=== PATIENT | female | born 1990 | race Caucasian/White ===

== ENCOUNTER 2021-05-28 14:20 | Inpatient (IN) ==
[2021-05-28] MEDS ORDERED: SODIUM CHLORIDE 0.9% 1000ML 1,000 ML IV ONE (16:33)
[2021-05-28] MEDS ORDERED: KETOROLAC TROMETHAMINE 15 MG/ML VIAL IV STA (16:33)
[2021-05-28] MEDS ORDERED: ONDANSETRON INJ 2 MG/ML 2 ML VIAL IV STA (16:33)
[2021-05-28] MEDS ORDERED: HYDROmorphone INJ 0.5 MG/0.5 ML SYR IV PRN (16:33)
[2021-05-28] MEDS ORDERED: ACETAMINOPHEN 1000 MG/100 ML IV IV STA (16:37)
--- NOTE | 2021-05-28 16:47 | Emergency Department Note ---
Impression & Plan Acute right flank pain, Pleuritic chest pain, Pulmonary emboli, COVID-19 ED Provider Note Nursing withNAME: OTIS WIN AGE: 30 SEX: F : 1990 ARRIVES VIA: Walk-In INFORMANT: [Patient] ED PROVIDER(S): [Kash Lay MD] CHIEF COMPLAINT: Flank pain HISTORY OF PRESENT ILLNESS: The patient is a 30-year-old female presents to the ER with right flank and righ t chest pain. She felt okay yesterday and this all seemed to start this morning. The pain is a 7 on a scale 1-10. The pain is worse with a deep breath, with coughing or lying flat. The pain is constant. The pain does not radiate. There is no anterior abdominal pain. She does feel somewhat short of breath with exertion but, this is not unusual as she was diagnosed with Covid just under 2 weeks ago. The patient does not have any fever. There has been no nausea or vomiting, no diarrhea. Her urine was a funny color today but it did not burn to urinate. She has no history of kidney stones or of a kidney infection. REVIEW OF SYSTEMS: See HPI for pertinent positives and negatives. A total of ten systems were reviewed and were otherwise negative. PMHx/PSHx: See Below SOCIAL HISTORY: See Below. PHYSICAL EXAM: GENERAL: Patient is in moderate distress from pain. HEENT: No acute trauma, normocephalic atraumatic, mucous membranes moist, no nasal congestion, no scleral icterus. NECK: No stridor, no adenopathy, no meningismus, trachea is midline. LUNGS: Clear to auscultation bilaterally, no wheeze, no rhonchi, breath sounds equal. Increased respiratory rate. HEART: Without murmurs gallops or rubs, regular rate and rhythm. ABDOMEN: Soft, nontender, bowel sounds positive, no hernias, no peritonitis. EXTREMITIES: No cyanosis or edema, full range of motion of all the joints without pain or difficulty, no signs for acute trauma. NEUROLOGIC: Oriented x 3, no acute motor or sensory deficits, no focal weakness. SKIN: No rash, no jaundice, no diaphoresis. Back: Tender just to touch the skin of the right flank. Tender to percuss the right flank as well. No rash. DIFFERENTIAL DIAGNOSIS: Pyelonephritis, infection, diverticulitis, UTI, obstruction, mesenteric ischemia, aortic pathology, inflammatory bowel disease, renal colic, PUD, pancreatitis, biliary pathology, hernia, volvulus, constipation, PE, pneumonia, as well as other pathologies. EMERGENCY DEPARTMENT COURSE/PROCEDURES: ECG: Indication was chest pain. The ECG shows what appears to be a sinus bradycardia versus an ectopic atrial rhythm. The rate is 57. There is no ST elevation. There is some nonspecific ST change and some baseline artifact. No PVCs. The QTc is 449. Compared to an ECG from 22 May 2021, the nonspecific changes are much more pronounced. Continuous Cardiac Monitoring: An order was placed for continuous cardiac monitoring. The monitor shows a rate of 58 with sinus bradycardia. Critical Care Note: I have personally spent 61 minutes of critical care time in the direct management of this patient. This includes bedside care, interpretation of diagnostic studies, and testing, discussion with consultants, patient, and family members, and other required patient management activities. This 61 minutes is in excess of all separately billable procedures. MEDICAL DECISION MAKING: There is no leukocytosis or concerning anemia. There is a normal platelet count. No coagulopathy. Potassium was somewhat low at 3, no kidney failure. Lactic acid level was not elevated making sepsis less likely. No worrisome liver enzyme elevation. No evidence for pancreatitis. testing was negative. Covid testing was positive. Chest film showed patchy infiltrates consistent with a viral pneumonia. Chest CT showed the viral pneumonia plus pulmonary emboli. Abdominal and pelvis CT did not show any acute surgical pathology. No bowel obstruction. No hydronephrosis. The patient presents with right flank discomfort. The pain was worsened with deep breathing. She recently tested Covid positive. The patient received IV saline for hydration, she was given 1 L. She was given IV potassium and oral potassium. She received IV Zofran, IV Toradol, IV Dilaudid. She received IV Tylenol. The patient's pain is from her pneumonia and pulmonary emboli. Given her Covid findings, given her pneumonia and now the PEs, I do think hospitalization is warranted. She requires anticoagulation. I spoke to the patient and to case management. The on-call hospitalist has been consulted. Past Med/Surg History Medical History Anxiety Chronic low back pain PT FOR Globus sensation THROAT, UPCOMING PROCEDURE PLANNED TO DETERMINE CAUSE - NOT ABLE TO BE DONE AT PRESENT TIME D/T RESTRICTIONS OF PROCEDURES D/T COVID Hiatal hernia MILD History of anesthesia reaction COME OUT SLOWLY History of infection REISTANT UTI & RESISTANT YEAST INFECTIONS SUMMER 2019 - [place] ABX FOR - N/V , 30 POUND WEIGHT LOSS , GLOBUS SENSATION IN THROAT INFECTIONS BOTH HAVE CLEARED - F/U FOR GLOBUS SENSATION IN THROAT REMAINS IN PROGRESS Hypotension CHRONIC LOW BP - 110/80 SOMETIMES LOWER PER PT Nasal congestion MILD, PT REPORTS D/T WINTER ALLERGIES Obesity TMJ (temporomandibular joint disorder) NO HX LOCKING - POPPING Surgical History History of colonoscopy AND ENDOSCOPY History of surgery STEROID INJECTIONS PUT UNDER FOR AND RADIOFREQUENCY PROCEDURE LUMBAR 2011 MOST RECENT INJECTION: 2009 [place] teeth removed X3 Family History Other Family history of diabetes mellitus in father Social History Smoking Status: Never smoker Hx Alcohol Use: Yes Alcohol type: wine Preferred Language: Ukrainian Communication Ability: Effective Fashion Editor Required: No Beliefs That Will Affect Care: None Current Living Situation: Parent and Family Current Living Situation Comment: SON, PARENTS AND DAD'S MOTHER Feels Safe at Home: Yes Assistive Devices: Contacts Allergies Allergies Allergy/AdvReac Type Severity Reaction Status Date / Time morphine AdvReac Unknown headache,nausea,burning Verified 05/28/21 18:06 at IV site Sulfa (Sulfonamide AdvReac Unknown NOT Verified 05/28/21 18:06 Antibiotics) EFFECTIVE FOR PINK EYE Home Meds Home Medications Medication Instructions Recorded Confirmed fluoxetine 10 mg tablet 10 mg PO QAM 12/26/20 05/28/21 omeprazole 20 mg tablet,delayed 20 mg PO QAM 12/26/20 05/28/21 release albuterol sulfate 90 mcg/actuation 2 puff INHALATION Q4 PRN 05/22/21 05/28/21 aerosol inhaler ascorbic acid (vitamin C) 500 mg 500 mg PO QAM 05/28/21 05/28/21 tablet (Vitamin C) zinc 50 mg tablet 50 mg PO QAM 05/28/21 05/28/21 Previous Rx's Medication Instructions Recorded ondansetron 4 mg disintegrating 4 mg PO Q8H PRN #30 tab 05/22/21 tablet Results & Data (ED) Vital Signs Vital Signs - 24 hr 05/28/21 14:24 05/28/21 17:42 05/28/21 19:00 Temperature 36.8 C Temperature Source Temporal Artery Scan Pulse Rate 84 Pulse Rate [Left] 58 L 58 L Pulse Rhythm [Left] Regular Regular Pulse Strength [Left] Normal Normal Respiratory Rate 24 18 18 Respiratory Effort / Characteristics Non-Labored Spontaneous Non-Labored Spontaneous Respiratory Depth Normal Normal Respiratory Pattern Regular Blood Pressure 98/72 L Blood Pressure [Left Arm] 110/64 90/52 L Blood Pressure Mean 80 Blood Pressure Mean [Left Arm] 79 64 Blood Pressure Position [Left Arm] Lying Lying Pulse Oximetry 96 98 96 Oxygen Delivery Method Room Air Room Air Room Air Oxygen Flow Rate Sepsis Recent Fever Within 48 Hours No Sepsis New/Unexplained Change in Mental Status N/A Sepsis Action Taken by Nursing No Action Required 05/28/21 21:20 05/28/21 22:27 Temperature Temperature Source Pulse Rate Pulse Rate [Left] 63 52 L Pulse Rhythm [Left] Pulse Strength [Left] Respiratory Rate 20 20 Respiratory Effort / Characteristics Respiratory Depth Respiratory Pattern Blood Pressure Blood Pressure [Left Arm] 114/67 113/61 Blood Pressure Mean Blood Pressure Mean [Left Arm] 82 78 Blood Pressure Position [Left Arm] Pulse Oximetry 100 100 Oxygen Delivery Method Nasal Cannula Nasal Cannula Oxygen Flow Rate 2 2 Sepsis Recent Fever Within 48 Hours Sepsis New/Unexplained Change in Mental Status Sepsis Action Taken by Jail Medications Current Medication List: was personally reviewed by me Laboratory Data Attestation: I reviewed the patient's lab results. Result diagrams: 05/28/21 17:10 05/28/21 17:10 Lab Results 05/28/21 05/28/21 05/28/21 Range/Units 16:10 17:10 17:10 WBC 9.09 (4.8-10.8) K/uL RBC 4.85 (4.2-5.4) M/uL Hgb 13.3 (12.0-16.0) g/dL Hct 39.2 (37-47) % MCV 80.8 (80-100) fL MCH 27.4 (25-34) pg MCHC 33.9 (32-36) g/dL RDW Std Deviation 36.7 (36.4-46.3) fL RDW Coeff of Cee 12.6 (11.5-14.5) % Plt Count 351 (130-400) K/uL MPV 10.0 (7.4-10.4) fL Immature Gran % (Auto) 0.7 % Neut % (Auto) 70.3 % Lymph % (Auto) 20.5 % [place] % (Auto) 7.4 % Eos % (Auto) 1.0 % Baso % (Auto) 0.1 % Neut # (Auto) 6.40 (1.4-6.5) K/uL Lymph # (Auto) 1.86 (1.2-3.4) K/uL [place] # (Auto) 0.67 H (0.11-0.59) K/uL Eos # (Auto) 0.09 (0-0.5) K/uL Baso # (Auto) 0.01 (0-0.2) K/uL Immature Gran # (Auto) 0.06 H (0.00-0.02) K/uL PT 10.5 (9.0-12.0) Seconds INR 1.0 (0.9-1.1) APTT 22.8 (21.0-31.0) Seconds PTT Ratio 0.9 Sodium 141 (136-145) mmol/L Potassium 3.0 L (3.5-5.1) mmol/L Chloride 106 (98-107) mmol/L Carbon Dioxide 28 (21-32) mmol/L Anion Gap 7.0 (3-11) BUN 13 (7-18) mg/dl Creatinine 0.84 (0.6-1.2) mg/dl Est Cr Clr Drug Dosing 107.8 ml/min Est GFR ( Amer) 106.6 ml/min Est GFR (Non-Af Amer) 92.0 ml/min BUN/Creatinine Ratio 15.4 (10-20) Glucose 93 (70-99) mg/dl Lactate (0.4-2.0) mmol/L Calcium 9.0 (8.5-10.1) mg/dl Total Bilirubin 0.7 (0.2-1) mg/dl AST 42 H (15-37) U/L ALT 74 (12-78) U/L Alkaline Phosphatase 66 (45-117) U/L Troponin I < 0.015 (0-0.045) ng/ml Total Protein 8.1 (6.4-8.2) gm/dl Albumin 3.7 (3.4-5.0) gm/dl Globulin 4.4 H (2.5-4.0) gm/dl Albumin/Globulin Ratio 0.8 L (0.9-2) Lipase 143 (73-393) U/L HCG, Qual (Negative) COVID-19 Eval Order SARS-CoV-2 (PCR) (Negative) 05/28/21 05/28/21 05/28/21 Range/Units 17:10 17:10 17:25 WBC (4.8-10.8) K/uL RBC (4.2-5.4) M/uL Hgb (12.0-16.0) g/dL Hct (37-47) % MCV (80-100) fL MCH (25-34) pg MCHC (32-36) g/dL RDW Std Deviation (36.4-46.3) fL RDW Coeff of Cee (11.5-14.5) % Plt Count (130-400) K/uL MPV (7.4-10.4) fL Immature Gran % (Auto) % Neut % (Auto) % Lymph % (Auto) % [place] % (Auto) % Eos % (Auto) % Baso % (Auto) % Neut # (Auto) (1.4-6.5) K/uL Lymph # (Auto) (1.2-3.4) K/uL [place] # (Auto) (0.11-0.59) K/uL Eos # (Auto) (0-0.5) K/uL Baso # (Auto) (0-0.2) K/uL Immature Gran # (Auto) (0.00-0.02) K/uL PT (9.0-12.0) Seconds INR (0.9-1.1) APTT (21.0-31.0) Seconds PTT Ratio Sodium (136-145) mmol/L Potassium (3.5-5.1) mmol/L Chloride (98-107) mmol/L Carbon Dioxide (21-32) mmol/L Anion Gap (3-11) BUN (7-18) mg/dl Creatinine (0.6-1.2) mg/dl Est Cr Clr Drug Dosing ml/min Est GFR ( Amer) ml/min Est GFR (Non-Af Amer) ml/min BUN/Creatinine Ratio (10-20) Glucose (70-99) mg/dl Lactate 1.6 (0.4-2.0) mmol/L Calcium (8.5-10.1) mg/dl Total Bilirubin (0.2-1) mg/dl AST (15-37) U/L ALT (12-78) U/L Alkaline Phosphatase (45-117) U/L Troponin I (0-0.045) ng/ml Total Protein (6.4-8.2) gm/dl Albumin (3.4-5.0) gm/dl Globulin (2.5-4.0) gm/dl Albumin/Globulin Ratio (0.9-2) Lipase (73-393) U/L HCG, Qual Negative (Negative) COVID-19 Eval Order Covid19 at [facility] SARS-CoV-2 (PCR) (Negative) 05/28/21 Range/Units 17:25 WBC (4.8-10.8) K/uL RBC (4.2-5.4) M/uL Hgb (12.0-16.0) g/dL Hct (37-47) % MCV (80-100) fL MCH (25-34) pg MCHC (32-36) g/dL RDW Std Deviation (36.4-46.3) fL RDW Coeff of Cee (11.5-14.5) % Plt Count (130-400) K/uL MPV (7.4-10.4) fL Immature Gran % (Auto) % Neut % (Auto) % Lymph % (Auto) % [place] % (Auto) % Eos % (Auto) % Baso % (Auto) % Neut # (Auto) (1.4-6.5) K/uL Lymph # (Auto) (1.2-3.4) K/uL [place] # (Auto) (0.11-0.59) K/uL Eos # (Auto) (0-0.5) K/uL Baso # (Auto) (0-0.2) K/uL Immature Gran # (Auto) (0.00-0.02) K/uL PT (9.0-12.0) Seconds INR (0.9-1.1) APTT (21.0-31.0) Seconds PTT Ratio Sodium (136-145) mmol/L Potassium (3.5-5.1) mmol/L Chloride (98-107) mmol/L Carbon Dioxide (21-32) mmol/L Anion Gap (3-11) BUN (7-18) mg/dl Creatinine (0.6-1.2) mg/dl Est Cr Clr Drug Dosing ml/min Est GFR ( Amer) ml/min Est GFR (Non-Af Amer) ml/min BUN/Creatinine Ratio (10-20) Glucose (70-99) mg/dl Lactate (0.4-2.0) mmol/L Calcium (8.5-10.1) mg/dl Total Bilirubin (0.2-1) mg/dl AST (15-37) U/L ALT (12-78) U/L Alkaline Phosphatase (45-117) U/L Troponin I (0-0.045) ng/ml Total Protein (6.4-8.2) gm/dl Albumin (3.4-5.0) gm/dl Globulin (2.5-4.0) gm/dl Albumin/Globulin Ratio (0.9-2) Lipase (73-393) U/L HCG, Qual (Negative) COVID-19 Eval Order SARS-CoV-2 (PCR) POSITIVE A* (Negative) Administered Medications Hydromorphone HCl (Hydromorphone Inj 0.5 Mg/0.5 Ml Syr) 0.5 mg IV Q15M PRN PRN Reason: Pain Stop: 06/11/21 16:32 Last Admin: 05/28/21 17:33 Dose: 0.5 mg Documented by: [id number] Heparin Sodium/Dextrose (Heparin Sodium/Dextrose) 25,000 units in 500 mls @ 25 mls/hr IV .Q20H [facility]; Protocol Stop: 06/27/21 22:14 Last Admin: 05/28/21 22:13 Dose: 1,250 units/hr, 25 mls/hr Documented by: [id number] Cosigned by: [id number] Discontinued Medications Acetaminophen (Acetaminophen 1000 Mg/100 Ml Iv) 1,000 mg IV NOW STA Stop: 05/28/21 16:38 Last Admin: 05/28/21 17:32 Dose: 1,000 mg Documented by: [id number] Heparin Sodium/Dextrose (Heparin 26427 Unit/500 Ml D5w) Confirm Administered Dose 25,000 units IV .STK-MED ONE Stop: 05/28/21 22:09 Last Admin: 05/28/21 22:16 Dose: Not Given Documented by: [id number] Sodium Chloride (Nss 1000ml) 1,000 mls @ 999 mls/hr IV .Q1H1M ONE Stop: 05/28/21 17:33 Last Infusion: 05/28/21 18:16 Dose: 0 mls/hr Documented by: [id number] Admin: 05/28/21 17:32 Dose: 999 mls/hr Documented by: [id number] Potassium Chloride (K Jeffy / Wtr) 10 meq in 100 mls @ 100 mls/hr IV ONE ONE Stop: 05/28/21 18:46 Last Infusion: 05/28/21 21:29 Dose: 0 mls/hr Documented by: [id number] Infusion: 05/28/21 19:45 Dose: 100 mls/hr Documented by: [id number] Infusion: 05/28/21 18:50 Dose: 50 mls/hr Documented by: [id number] Admin: 05/28/21 18:44 Dose: 100 mls/hr Documented by: [id number] Ioversol (Optiray 320 125ml) 120 ml IV ONCE ONE Stop: 05/28/21 19:52 Last Admin: 05/28/21 19:51 Dose: 120 ml Documented by: [id number] Ketorolac Tromethamine (Ketorolac Tromethamine 15 Mg/Ml Vial) 15 mg IV NOW STA Stop: 05/28/21 16:34 Last Admin: 05/28/21 17:32 Dose: 15 mg Documented by: [id number] Ondansetron HCl (Ondansetron Inj 2 Mg/Ml 2 Ml Vial) 4 mg IV NOW STA Stop: 05/28/21 16:34 Last Admin: 05/28/21 17:32 Dose: 4 mg Documented by: [id number] Potassium Chloride (Potassium Chloride Crtab 20 Meq Tabcr) 40 meq PO NOW STA Stop: 05/28/21 21:36 Last Admin: 05/28/21 22:12 Dose: 40 meq Documented by: [id number] Imaging Data Radiologist's Impression: Abdomen/Pelvis CTA 05/28/21 16:33 CT angio abdomen pelvis w con CLINICAL HISTORY: right flank pain COMPARISON STUDY: CT of the abdomen and pelvis February 18, 2020. TECHNIQUE: Helical axial images of the abdomen and pelvis were obtained during arterial phase following intravenous injection of 120 cc Optiray 320 IV. Sagittal and coronal reconstructions were viewed as well as maximal intensity projections on an independent 3-D workstation. Automated exposure control was utilized for the study. A dose lowering technique was utilized adhering to the principles of ALARA. FINDINGS: Please note that the chest CT will be reported separately. This demonstrates multifocal airspace opacities and segmental pulmonary emboli within the right lower lobe with possible right lower lobe pulmonary infarct. No pneumatosis, free air or portal venous gas is present. The caliber of the abdominal aorta is normal. Branch vessels are patent. There is no dissection within the abdominal aorta. Arterial phase images of the liver, spleen, adrenal glands, kidneys and pancreas are unremarkable. There is no hydronephrosis. There is no evidence for a bowel obstruction. No lymphadenopathy is present. No acute fracture or suspicious lesion is identified within the visualized skeletal structures. IMPRESSION: 1. Unremarkable CTA of the abdomen and pelvis. 2. Bilateral lower lobe airspace opacities suggestive of viral pneumonia. Segmental pulmonary emboli within the right lower lobe with suspected pulmonary infarct and a trace right pleural effusion. These findings are better depicted on the chest CT which will be reported separately. ACT 112: Negative or not required by law. Electronically signed by: Ralph Mckeon M.D. 05/28/2021 8:21 PM Chest CTA 05/28/21 16:33 CT ANGIOGRAPHY OF THE CHEST, PULMONARY EMBOLUS PROTOCOL CLINICAL HISTORY: Right flank pain. Shortness of breath. COMPARISON STUDY: Chest CT May 22, 2021. Chest radiograph performed earlier today. TECHNIQUE: Following IV administration of 120 mL of Optiray, helical axial images of the chest were obtained utilizing the pulmonary embolus protocol. Maximal intensity projections and sagittal and coronal reformats were viewed on an independent 3D workstation. IV contrast was administered without complication. Automated exposure control was utilized for the study. A dose lowering technique was utilized adhering to the principles of ALARA. CT DOSE: 953.83 mGy.cm FINDINGS: Several segmental pulmonary emboli within the right lower lobe are new since chest CT of May 22, 2021. There is a trace right pleural effusion. There may be a right lower lobe pulmonary infarct although evaluation is difficult given adjacent airspace opacity suggestive of viral pneumonia. Moderate multifocal bilateral airspace opacities again noted, as shown on prior CT. Mildly enlarged mediastinal and bilateral hilar lymph nodes are likely reactive. There is no thoracic aortic dissection. Size the heart is normal. There is no pericardial effusion. IMPRESSION: 1. Several acute segmental pulmonary emboli within the right lower lobe. These are new since CT of May 22, 2021. Suspected associated pulmonary infarct within the right lower lobe although evaluation is difficult given adjacent airspace opacity. Trace right pleural effusion. 2. Redemonstration of bilateral airspace opacities, as shown on prior chest CT. These suggest viral pneumonia. 3. Mildly enlarged mediastinal and bilateral hilar lymph nodes which are likely reactive. ACT 112: Negative or not required by law. Electronically signed by: Ralph Mckeon M.D. 05/28/2021 8:13 PM Chest X-Ray 05/28/21 16:33 XR chest 1V portable CLINICAL HISTORY: Right-sided chest pain. COMPARISON STUDY: Chest CT May 22, 2021. FINDINGS: Lung volumes are mildly diminished. There is no pneumothorax or pleural effusion. Multifocal bilateral airspace opacities have slightly progressed. These have a lower lung predominance. IMPRESSION: Progression of bilateral airspace opacities suggestive of an infect ious process such as viral pneumonia. ACT 112: Negative or not required by law. Electronically signed by: Ralph Mckeon M.D. 05/28/2021 5:08 PM Discharge Plan Visit Data Chief Complaint: Flank Pain Stated Complaint: RIGHT SIDE PAIN ED Provider: Kash Lay Discharge Problem: Acute right flank pain, Pleuritic chest pain, Pulmonary emboli, COVID-19 Patient Disposition: Admitted As Inpatient Condition: Fair Forms Stand Alone Forms: [facility] Prescriptions Prescriptions: No Action fluoxetine 10 mg Tablet 10 mg PO QAM RF: 0 omeprazole 20 mg Tablet,Delayed Release (Dr/Ec) 20 mg PO QAM RF: 0 albuterol sulfate 90 mcg/actuation HFA aerosol inhaler 2 puff INHALATION Q4 PRN (Reason: Cough) RF: 0 ondansetron 4 mg tablet,disintegrating 4 mg PO Q8H PRN (Reason: nausea and vomiting) Qty: 30 RF: 0 ascorbic acid (vitamin C) [Vitamin C] 500 mg Tablet 500 mg PO QAM RF: 0 zinc 50 mg Tablet 50 mg PO QAM RF: 0 Referrals Referrals: Scottie Goncalves MD [Primary Care Provider] -
--- NOTE | 2021-05-28 17:09 | XRay Report ---
XR chest 1V portable CLINICAL HISTORY: Right-sided chest pain. COMPARISON STUDY: Chest CT May 22, 2021. FINDINGS: Lung volumes are mildly diminished. There is no pneumothorax or pleural effusion. Multifoca l bilateral airspace opacities have slightly progressed. These have a lower lung predominance. IMPRESSION: Progression of bilateral airspace opacities suggestive of an infectious process such as viral pneumonia. ACT 112: Negative or not required by law. Electronically signed by: Ralph Mckeon M.D. 05/28/2021 5:08 PM
[2021-05-28 17:21] LABS: Basophils # (auto) 0.01 K/uL (0-0.2); Basophils % (auto) 0.1 %; Eosinophils # (auto) 0.09 K/uL (0-0.5); Hematocrit (blood only) 39.2 % (37-47); Hemoglobin 13.3 g/dL (12.0-16.0); Immature Granulocytes # (auto) 0.06 K/uL (0.00-0.02); Immature Granulocytes % (auto) 0.7 %; Lymphocytes # (auto) 1.86 K/uL (1.2-3.4); Lymphocytes % (auto) 20.5 %; Mean Corpuscular Hemoglobin 27.4 pg (25-34); Mean Corpuscular Hgb Conc 33.9 g/dL (32-36); Mean Corpuscular Volume 80.8 fL (80-100); Monocytes # (auto) 0.67 K/uL (0.11-0.59); Monocytes % (auto) 7.4 %; Neutrophils % (auto) 70.3 %; Platelet Count 351 K/uL (130-400); RDW Coefficient of Variation 12.6 % (11.5-14.5); RDW Standard Deviation 36.7 fL (36.4-46.3); Red Blood Count 4.85 M/uL (4.2-5.4); White Blood Count 9.09 K/uL (4.8-10.8)
[2021-05-28 17:36] LABS: Alanine Aminotransferase 74 U/L (12-78); Albumin Level 3.7 gm/dl (3.4-5.0); Aspartate Aminotransferase 42 U/L (15-37); BUN Creatinine Ratio 15.4 (10-20); Blood Urea Nitrogen 13 mg/dl (7-18); Carbon Dioxide 28 mmol/L (21-32); Chloride 106 mmol/L (98-107); Creatinine Clr Calc Pharmacy 107.8 ml/min; Est GFR (African American) 106.6 ml/min; Glucose 93 mg/dl (70-99); Lipase 143 U/L (73-393); Sodium 141 mmol/L (136-145)
[2021-05-28 17:41] LABS: Albumin Globulin Ratio 0.8 (0.9-2); Alkaline Phosphatase 66 U/L (45-117); Bilirubin,Total 0.7 mg/dl (0.2-1); Globulin 4.4 gm/dl (2.5-4.0); Total Protein 8.1 gm/dl (6.4-8.2); Troponin I < 0.015 ng/ml (0-0.045)
[2021-05-28] MEDS ORDERED: POTASSIUM CHLORIDE / WTR 10 MEQ/100 ML PLCT IV ONE (17:47)
[2021-05-28 17:53] LABS: Pregnancy Test, Serum Negative (Negative)
[2021-05-28] MEDS ORDERED: OPTIRAY 320 125ml IV ONE (19:51)
--- NOTE | 2021-05-28 20:14 | CT Scan Report ---
CT ANGIOGRAPHY OF THE CHEST, PULMONARY EMBOLUS PROTOCOL CLINICAL HISTORY: Right flank pain. Shortness of breath. COMPARISON STUDY: Chest CT May 22, 2021. Chest radiograph performed earlier today. TECHNIQUE: Following IV administration of 120 mL of Optiray, helical axial images of the chest were o btained utilizing the pulmonary embolus protocol. Maximal intensity projections and sagittal and cor onal reformats were viewed on an independent 3D workstation. IV contrast was administered without co mplication. Automated exposure control was utilized for the study. A dose lowering technique was ut ilized adhering to the principles of ALARA. CT DOSE: 953.83 mGy.cm FINDINGS: Several segmental pulmonary emboli within the right lower lobe are new since chest CT of J vera2020. There is a trace right pleural effusion. There may be a right lower lobe pulmonary infa rct although evaluation is difficult given adjacent airspace opacity suggestive of viral pneumonia. M oderate multifocal bilateral airspace opacities again noted, as shown on prior CT. Mildly enlarged me diastinal and bilateral hilar lymph nodes are likely reactive. There is no thoracic aortic dissection . Size the heart is normal. There is no pericardial effusion. IMPRESSION: 1. Several acute segmental pulmonary emboli within the right lower lobe. These are new since CT of Ju 2020. Suspected associated pulmonary infarct within the right lower lobe although evaluation i s difficult given adjacent airspace opacity. Trace right pleural effusion. 2. Redemonstration of bilateral airspace opacities, as shown on prior chest CT. These suggest viral p neumonia. 3. Mildly enlarged mediastinal and bilateral hilar lymph nodes which are likely reactive. ACT 112: Negative or not required by law. Electronically signed by: Ralph Mckeon M.D. 05/28/2021 8:13 PM
--- NOTE | 2021-05-28 20:23 | CT Scan Report ---
CT angio abdomen pelvis w con CLINICAL HISTORY: right flank pain COMPARISON STUDY: CT of the abdomen and pelvis February 18, 2020. TECHNIQUE: Helical axial images of the abdomen and pelvis were obtained during arterial phase followi ng intravenous injection of 120 cc Optiray 320 IV. Sagittal and coronal reconstructions were viewed a s well as maximal intensity projections on an independent 3-D workstation. Automated exposure control was utilized for the study. A dose lowering technique was utilized adhering to the principles of AL KEL. FINDINGS: Please note that the chest CT will be reported separately. This demonstrates multifocal air space opacities and segmental pulmonary emboli within the right lower lobe with possible right lower lobe pulmonary infarct. No pneumatosis, free air or portal venous gas is present. The caliber of the abdominal aorta is normal. Branch vessels are patent. There is no dissection within the abdominal aor ta. Arterial phase images of the liver, spleen, adrenal glands, kidneys and pancreas are unremarkable . There is no hydronephrosis. There is no evidence for a bowel obstruction. No lymphadenopathy is pre sent. No acute fracture or suspicious lesion is identified within the visualized skeletal structures. IMPRESSION: 1. Unremarkable CTA of the abdomen and pelvis. 2. Bilateral lower lobe airspace opacities suggestive of viral pneumonia. Segmental pulmonary emboli within the right lower lobe with suspected pulmonary infarct and a trace right pleural effusion. Thes e findings are better depicted on the chest CT which will be reported separately. ACT 112: Negative or not required by law. Electronically signed by: Ralph Mckeon M.D. 05/28/2021 8:21 PM
[2021-05-28 21:09] LABS: Partial Thromboplastin Ratio 0.9; Partial Thromboplastin Time 22.8 Seconds (21.0-31.0); Prothrombin Time 10.5 Seconds (9.0-12.0)
[2021-05-28] MEDS ORDERED: POTASSIUM CHLORIDE CRTAB 20 MEQ TABCR PO STA (21:35)
[2021-05-28] MEDS ORDERED: Heparin IV Adult Wt-Based Standard *NO* Bolus Protocol IV STA (21:54)
[2021-05-28] MEDS ORDERED: HEPARIN 25000 UNIT/500 ML D5W IV ONE (22:08)
[2021-05-28] MEDS: HEPARIN SODIUM/DEXTROSE 25,000 UNITS/500 ML BAG IV SCH (22:13)
--- NOTE | 2021-05-28 23:09 | History & Physical Report ---
Date of Service May 28, 2021 Assessment & Plan (1) Pulmonary emboli: Plan: First occurrence Likely secondary to recent COVID-19 pneumonia Hypokalemia secondary to clinical dehydration Medical telemetry Analgesia IV Heparin Defer discussion regarding options for home anticoagulation between patient and AM provider. (Patient interested in NOAC.) Replace potassium, IVF DVT prophylaxis with IV heparin Full code Text document was generated using [employer] voice recognition software. It may contain grammatical or spelling errors. Kindly contact undersigned for clarification of any documentation item in question. History of Present Illness Chief Complaint: Right flank pain, shortness of breath Primary Care Provider: Scottie Goncalves MD History obtained from patient and records. Medical history significant for mood disorder, recent COVID 19 pneumonia. 2 weeks ago, patient noted cough symptoms with fever. Recent COVID-19 contacts. Outpatient COVID-19 test positive. Worsening symptoms despite outpatient prednisone course. [facility] ER evaluation last week. Patient subsequently sent home. Cough symptoms from Covid 19 illness subsequently resolved. This morning patient noted achy right flank and pleuritic right-sided chest pain with shortness of breath. No unusual cough symptoms. No prior history of blood clots or immediate family members with blood clot history. Patient consulted ER for evaluation. Medical History as above Surgical History : Right shoulder surgery, dental surgery Family History : Breast cancer, GIST, heart disease, stroke Personal/Social history : Non-smoker, occasional EtOH intake, purchasing work Allergies Allergy/AdvReac Type Severity Reaction Status Date / Time morphine AdvReac Unknown headache,nausea,burning Verified 05/28/21 18:06 at IV site Sulfa (Sulfonamide AdvReac Unknown NOT Verified 05/28/21 18:06 Antibiotics) EFFECTIVE FOR PINK EYE Home Medications Medication Instructions Recorded Confirmed Type fluoxetine 10 mg tablet 10 mg PO QAM 12/26/20 05/28/21 History omeprazole 20 mg tablet,delayed 20 mg PO QAM 12/26/20 05/28/21 History release albuterol sulfate 90 mcg/actuation 2 puff INHALATION Q4 PRN 05/22/21 05/28/21 History aerosol inhaler ondansetron 4 mg disintegrating 4 mg PO Q8H PRN #30 tab 05/22/21 05/28/21 Rx tablet ascorbic acid (vitamin C) 500 mg 500 mg PO QAM 05/28/21 05/28/21 History tablet (Vitamin C) zinc 50 mg tablet 50 mg PO QAM 05/28/21 05/28/21 History Past Med/Surg History Medical History Anxiety Chronic low back pain PT FOR Globus sensation THROAT, UPCOMING PROCEDURE PLANNED TO DETERMINE CAUSE - NOT ABLE TO BE DONE AT PRESENT TIME D/T RESTRICTIONS OF PROCEDURES D/T COVID Hiatal hernia MILD History of anesthesia reaction COME OUT SLOWLY History of infection REISTANT UTI & RESISTANT YEAST INFECTIONS SUMMER 2019 - MUTLIP[place] ABX FOR - N/V , 30 POUND WEIGHT LOSS , GLOBUS SENSATION IN THROAT INFECTIONS BOTH HAVE CLEARED - F/U FOR GLOBUS SENSATION IN THROAT REMAINS IN PROGRESS Hypotension CHRONIC LOW BP - 110/80 SOMETIMES LOWER PER PT Nasal congestion MILD, PT REPORTS D/T WINTER ALLERGIES Obesity TMJ (temporomandibular joint disorder) NO HX LOCKING - POPPING Surgical History History of colonoscopy AND ENDOSCOPY History of surgery STEROID INJECTIONS PUT UNDER FOR AND RADIOFREQUENCY PROCEDURE LUMBAR 2011 MOST RECENT INJECTION: 2010 [place] teeth removed X3 Family History Other Family history of diabetes mellitus in father Social History Smoking Status: Never smoker Hx Alcohol Use: No Hx Substance Use: No Preferred Language: Bangladeshi Communication Ability: Effective Neck Band Setter Required: No Beliefs That Will Affect Care: None Current Living Situation: Family Current Living Situation Comment: SON, PARENTS AND DAD'S MOTHER Feels Safe at Home: Yes Assistive Devices: None Review of Systems Review of Systems: As per HPI, all 10 systems reviewed, all other ROS negative Physical Exam Physical Exam: GENERAL: Slightly uncomfortable, pleasant, obese, no respiratory distress SKIN: Normal color, warm HEENT: Bespectacled, Solomon palpebral conjunctivae, no ptosis, dry buccal mucosa NECK : Supple, no tenderness CHEST : CTA, right chest wall tenderness HEART : RRR, no obvious murmurs ABDOMEN: Some distention, minimal right flank tenderness EXTREMITIES : Minimal LE swelling, no LE tenderness, no other conspicuous deformities noted NEUROLOGIC : Coherent, no facial asymmetry, no other gross focality Results & Data Results & Data ([facility]) Vital Signs (Past 12 Hours) Vital Signs Temp Pulse Pulse Resp BP BP Pulse Ox 05/28/21 22:27 52 L 20 113/61 100 05/28/21 21:20 63 20 114/67 100 05/28/21 19:00 58 L 18 90/52 L 96 05/28/21 17:42 58 L 18 110/64 98 05/28/21 14:24 36.8 C 84 24 98/72 L 96 Laboratory Results Laboratory Results WBC 9.09 K/uL (4.8-10.8) 05/28/21 17:10 RBC 4.85 M/uL (4.2-5.4) 05/28/21 17:10 Hgb 13.3 g/dL (12.0-16.0) 05/28/21 17:10 Hct 39.2 % (37-47) 05/28/21 17:10 MCV 80.8 fL (80-100) 05/28/21 17:10 MCH 27.4 pg (25-34) 05/28/21 17:10 MCHC 33.9 g/dL (32-36) 05/28/21 17:10 RDW Std Deviation 36.7 fL (36.4-46.3) 05/28/21 17:10 RDW Coeff of Cee 12.6 % (11.5-14.5) 05/28/21 17:10 Plt Count 351 K/uL (130-400) 05/28/21 17:10 MPV 10.0 fL (7.4-10.4) 05/28/21 17:10 Immature Gran % (Auto) 0.7 % 05/28/21 17:10 Neut % (Auto) 70.3 % 05/28/21 17:10 Lymph % (Auto) 20.5 % 05/28/21 17:10 [place] % (Auto) 7.4 % 05/28/21 17:10 Eos % (Auto) 1.0 % 05/28/21 17:10 Baso % (Auto) 0.1 % 05/28/21 17:10 Neut # (Auto) 6.40 K/uL (1.4-6.5) 05/28/21 17:10 Lymph # (Auto) 1.86 K/uL (1.2-3.4) 05/28/21 17:10 [place] # (Auto) 0.67 K/uL (0.11-0.59) H 05/28/21 17:10 Eos # (Auto) 0.09 K/uL (0-0.5) 05/28/21 17:10 Baso # (Auto) 0.01 K/uL (0-0.2) 05/28/21 17:10 Immature Gran # (Auto) 0.06 K/uL (0.00-0.02) H 05/28/21 17:10 PT 10.5 Seconds (9.0-12.0) 05/28/21 16:10 INR 1.0 (0.9-1.1) 05/28/21 16:10 APTT 22.8 Seconds (21.0-31.0) 05/28/21 16:10 PTT Ratio 0.9 05/28/21 16:10 Sodium 141 mmol/L (136-145) 05/28/21 17:10 Potassium 3.0 mmol/L (3.5-5.1) L 05/28/21 17:10 Chloride 106 mmol/L (98-107) 05/28/21 17:10 Carbon Dioxide 28 mmol/L (21-32) 05/28/21 17:10 Anion Gap 7.0 (3-11) 05/28/21 17:10 BUN 13 mg/dl (7-18) 05/28/21 17:10 Creatinine 0.84 mg/dl (0.6-1.2) 05/28/21 17:10 Est Cr Clr Drug Dosing 107.8 ml/min 05/28/21 17:10 Est GFR ( Amer) 106.6 ml/min 05/28/21 17:10 Est GFR (Non-Af Amer) 92.0 ml/min 05/28/21 17:10 BUN/Creatinine Ratio 15.4 (10-20) 05/28/21 17:10 Glucose 93 mg/dl (70-99) 05/28/21 17:10 Lactate 1.6 mmol/L (0.4-2.0) 05/28/21 17:10 Calcium 9.0 mg/dl (8.5-10.1) 05/28/21 17:10 Total Bilirubin 0.7 mg/dl (0.2-1) 05/28/21 17:10 AST 42 U/L (15-37) H 05/28/21 17:10 ALT 74 U/L (12-78) 05/28/21 17:10 Alkaline Phosphatase 66 U/L (45-117) 05/28/21 17:10 Troponin I < 0.015 ng/ml (0-0.045) 05/28/21 17:10 Total Protein 8.1 gm/dl (6.4-8.2) 05/28/21 17:10 Albumin 3.7 gm/dl (3.4-5.0) 05/28/21 17:10 Globulin 4.4 gm/dl (2.5-4.0) H 05/28/21 17:10 Albumin/Globulin Ratio 0.8 (0.9-2) L 05/28/21 17:10 Lipase 143 U/L (73-393) 05/28/21 17:10 HCG, Qual Negative (Negative) 05/28/21 17:10 COVID-19 Eval Order Covid19 at [facility] 05/28/21 17:25 SARS-CoV-2 (PCR) POSITIVE (Negative) A* 05/28/21 17:25 Impressions Abdomen/Pelvis CTA 05/28/21 16:33 CT angio abdomen pelvis w con CLINICAL HISTORY: right flank pain COMPARISON STUDY: CT of the abdomen and pelvis February 18, 2020. TECHNIQUE: Helical axial images of the abdomen and pelvis were obtained during arterial phase following intravenous injection of 120 cc Optiray 320 IV. Sagittal and coronal reconstructions were viewed as well as maximal intensity projections on an independent 3-D workstation. Automated exposure control was utilized for the study. A dose lowering technique was utilized adhering to the principles of ALARA. FINDINGS: Please note that the chest CT will be reported separately. This demonstrates multifocal airspace opacities and segmental pulmonary emboli within the right lower lobe with possible right lower lobe pulmonary infarct. No pneumatosis, free air or portal venous gas is present. The caliber of the abdominal aorta is normal. Branch vessels are patent. There is no dissection within the abdominal aorta. Arterial phase images of the liver, spleen, adrenal glands, kidneys and pancreas are unremarkable. There is no hydronephrosis. There is no evidence for a bowel obstruction. No lymphadenopathy is present. No acute fracture or suspicious lesion is identified within the visualized skeletal structures. IMPRESSION: 1. Unremarkable CTA of the abdomen and pelvis. 2. Bilateral lower lobe airspace opacities suggestive of viral pneumonia. Segmental pulmonary emboli within the right lower lobe with suspected pulmonary infarct and a trace right pleural effusion. These findings are better depicted on the chest CT which will be reported separately. ACT 112: Negative or not required by law. Electronically signed by: Ralph Mckeon M.D. 05/28/2021 8:21 PM Chest CTA 05/28/21 16:33 CT ANGIOGRAPHY OF THE CHEST, PULMONARY EMBOLUS PROTOCOL CLINICAL HISTORY: Right flank pain. Shortness of breath. COMPARISON STUDY: Chest CT May 22, 2021. Chest radiograph performed earlier today. TECHNIQUE: Following IV administration of 120 mL of Optiray, helical axial images of the chest were obtained utilizing the pulmonary embolus protocol. Ma ximal intensity projections and sagittal and coronal reformats were viewed on an independent 3D workstation. IV contrast was administered without complication. Automated exposure control was utilized for the study. A dose lowering technique was utilized adhering to the principles of ALARA. CT DOSE: 953.83 mGy.cm FINDINGS: Several segmental pulmonary emboli within the right lower lobe are new since chest CT of May 22, 2021. There is a trace right pleural effusion. There may be a right lower lobe pulmonary infarct although evaluation is difficult given adjacent airspace opacity suggestive of viral pneumonia. Moderate multifocal bilateral airspace opacities again noted, as shown on prior CT. Mildly enlarged mediastinal and bilateral hilar lymph nodes are likely reactive. There is no thoracic aortic dissection. Size the heart is normal. There is no pericardial effusion. IMPRESSION: 1. Several acute segmental pulmonary emboli within the right lower lobe. These are new since CT of May 22, 2021. Suspected associated pulmonary infarct within the right lower lobe although evaluation is difficult given adjacent airspace opacity. Trace right pleural effusion. 2. Redemonstration of bilateral airspace opacities, as shown on prior chest CT. These suggest viral pneumonia. 3. Mildly enlarged mediastinal and bilateral hilar lymph nodes which are likely reactive. ACT 112: Negative or not required by law. Electronically signed by: Ralph Mckeon M.D. 05/28/2021 8:13 PM Chest X-Ray 05/28/21 16:33 XR chest 1V portable CLINICAL HISTORY: Right-sided chest pain. COMPARISON STUDY: Chest CT May 22, 2021. FINDINGS: Lung volumes are mildly diminished. There is no pneumothorax or pleural effusion. Multifocal bilateral airspace opacities have slightly progressed. These have a lower lung predominance. IMPRESSION: Progression of bilateral airspace opacities suggestive of an infectious process such as viral pneumonia. ACT 112: Negative or not required by law. Electronically signed by: Ralph Mckeon M.D. 05/28/2021 5:08 PM Diagnostic Findings EKG as per my interpretation: Rate 55, sinus bradycardia, RAD, LPF B, T wave flattening inferior leads, inversion septal leads (1) Pulmonary emboli Pulmonary embolism type: multiple subsegmental (without acute cor pulmonale) Qualified Code(s): I26.94 - Multiple subsegmental pulmonary emboli without acute cor pulmonale
[2021-05-28 23:54] LABS: Magnesium 2.3 mg/dl (1.8-2.4)
[2021-05-29 00:15] LABS: Appearance Urine Clear (Clear); Bacteria Urine Automated Negative (Negative); Blood Urine Negative (Negative); Color Urine Dark Yellow; Epithelial Cell Urine Auto >30 /lpf (0-5); Glucose Urine UA Negative (Negative); Ketones Urine 1+ (Negative); Leukocyte Esterase Urine Trace (Negative); Nitrite Urine Negative (Negative); Protein Urine Trace (Negative); RBC Urine Automated 0-4 /hpf (0-4); Specific Gravity Urine 1.031 (1.000-1.030); Urobilinogen Urine Negative (Negative); pH Urine 6.5 (4.5-7.5)
[2021-05-29 00:16] LABS: Bilirubin Urine 1+ (Negative)
[2021-05-29 00:29] LABS: Cast Urine Automated 0 /lpf (0-5); Mucus Urine Present (None Prsent)
[2021-05-29] MEDS ORDERED: traMADol HCL 50 MG TABLET PO PRN (01:56)
[2021-05-29] MEDS ORDERED: PROMETHAZINE HCL 12.5 MG in SODIUM CHLORIDE 0.9% 50 ML IV PRN (01:56)
[2021-05-29] MEDS ORDERED: LORazepam 0.5 MG/1 ML VIAL IV PRN (01:56)
[2021-05-29] MEDS ORDERED: HYDROmorphone INJ 0.5 MG/0.5 ML SYR IV PRN (01:56)
[2021-05-29] MEDS ORDERED: POTASSIUM CHLORIDE 40 MEQ in SODIUM CHLORIDE 0.45 % 1,000 ML IV ONE (02:15)
[2021-05-29] MEDS ORDERED: KETOROLAC TROMETHAMINE 15 MG/ML VIAL IV ONE (06:54)
[2021-05-29 07:31] LABS: Partial Thromboplastin Ratio 1.8
[2021-05-29] MEDS: ASCORBIC ACID 500 MG TAB PO SCH (07:33)
[2021-05-29] MEDS: FLUoxetine HCL 10 MG CAP PO SCH (07:33)
[2021-05-29] MEDS: PANTOprazole 40 MG TAB PO SCH (07:34)
[2021-05-29 07:49] LABS: BUN Creatinine Ratio 16.9 (10-20); Calcium 7.6 mg/dl (8.5-10.1); Creatinine Clr Calc Pharmacy 171.1 ml/min; Est GFR (African American) 144.7 ml/min; Est GFR (Non-African American) 124.9 ml/min; Potassium 3.8 mmol/L (3.5-5.1)
[2021-05-29] MEDS: LIDOCAINE 5% 1 PATCH TD SCH (08:02)
[2021-05-29 08:11] LABS: Basophils # (auto) 0.01 K/uL (0-0.2); Basophils % (auto) 0.1 %; Eosinophils # (auto) 0.09 K/uL (0-0.5); Eosinophils % (auto) 1.3 %; Hematocrit (blood only) 31.7 % (37-47); Hemoglobin 10.3 g/dL (12.0-16.0); Immature Granulocytes # (auto) 0.03 K/uL (0.00-0.02); Immature Granulocytes % (auto) 0.4 %; Lymphocytes # (auto) 1.52 K/uL (1.2-3.4); Mean Corpuscular Hemoglobin 26.5 pg (25-34); Mean Corpuscular Hgb Conc 32.5 g/dL (32-36); Mean Corpuscular Volume 81.7 fL (80-100); Mean Platelet Volume 10.4 fL (7.4-10.4); Monocytes # (auto) 0.91 K/uL (0.11-0.59); Monocytes % (auto) 13.2 %; Neutrophils # (auto) 4.34 K/uL (1.4-6.5); Platelet Count 273 K/uL (130-400); RDW Coefficient of Variation 12.8 % (11.5-14.5); RDW Standard Deviation 37.9 fL (36.4-46.3); Red Blood Count 3.88 M/uL (4.2-5.4)
--- NOTE | 2021-05-29 09:32 | Electrocardiogram Report ---
Test Reason : Blood Pressure : / mmHG Vent. Rate : 057 BPM Atrial Rate : 042 BPM P-R Int : 000 ms QRS Dur : 096 ms QT Int : 462 ms P-R-T Axes : 000 143 125 degrees QTc Int : 449 ms Probable Sinus rhythm with sinus arrhythmia Periodic artifact noted which mimics p waves Left posterior fascicular block Abnormal ECG When compared with ECG of 22-MAY-2021 20:15, Artifact now present Left posterior fascicular block now present Confirmed by Fabiano Juares ([id number]) on 05/29/2021 9:32:22 AM Referred By: REFERRED SELF Confirmed By:Fabiano Juares
[2021-05-29] MEDS: ACETAMINOPHEN 325 MG TAB PO PRN ×2 (12:51→21:25)
[2021-05-29] MEDS ORDERED: CALCIUM GLUCONATE 10% 1,000 MG in SODIUM CHLORIDE 0.9% 50 ML IV ONE (13:00)
[2021-05-29] MEDS: HYDROmorphone INJ 0.5 MG/0.5 ML SYR IV PRN (16:54)
[2021-05-29] MEDS: HEPARIN SODIUM/DEXTROSE 25,000 UNITS/500 ML BAG IV SCH (17:29)
--- NOTE | 2021-05-29 20:23 | Hospitalist Progress Note ---
Date of Service May 29, 2021 Assessment & Plan (1) Pulmonary emboli: Plan: Likely provoked PE secondary to recent COVID infection. Continue heparin with ultimate transition to NOAC such as Eliquis. For now with ongoing symptoms and oxygen use we will continue heparin. Continue supportive care for symptoms of pain including lidocaine patch. (2) Anemia: Plan: Likely delusional secondary to IV fluids, no acute bleeding. She has been phlebotomized in the hospital, also. Normal baseline H&H. Will trend in a.m. (3) Pneumonia due to COVID-19 virus: Plan: Recent infection with Covid pneumonia. With ongoing symptoms of pleurisy, cough and symptoms related to PE, will continue isolation at this time. No therapy is indicated. (4) Depression: Plan: Continue fluoxetine per home regimen. (5) DVT prophylaxis: Plan: Heparin drip Full code Disposition-to home when medically stable Tatiana Bishop DO [facility]ist Admission and Anticipated Discharge Date Admission Date: May 28, 2021 Subjective 31-year-old female presented with worsening acute chest pain and shortness of breath, found to have acute pulmonary embolus. She is improved on IV heparin but is still feeling generalized malaise, and reporting pain with deep breaths. Pain in her back/right flank improved on a lidocaine patch. She is still on oxygen supplementation and per primary nurse dropped to 93% on room air. Patient has oxygen for comfort at this point. Review of Systems Review of Systems: All systems were reviewed and negative except as indicated in HPI above. Physical Exam Physical Exam: CONSTITUTIONAL: WNWD, vitals as above, ill-appearing, NAD but appears uncomfortable in general. EYES: normal conjunctivae, no scleral icterus ENT: external ear and nose normal,MMM RESPIRATORY: clear to auscultation bilaterally, no crackles, rales or wheezes, normal respiratory effort CARDIOVASCULAR: regular rate and rhythm, S1 and 2 heard without murmurs, gallops or rubs, no JVD, no peripheral edema GASTROINTESTINAL: soft, nontender, nondistended. MUSCULOSKELETAL: strength 5/5 throughout, head is normocephalic and atraumatic SKIN: warm and dry NEUROLOGIC: CN 2-12 grossly intact, normal cognition, normal speech, no gross focal deficits. PSYCHIATRIC: alert cooperative and oriented to person, place and time. Results & Data Results & Data ([facility]) Vital Signs (Past 12 Hours) Vital Signs Temp Pulse Pulse Resp BP Pulse Ox 05/29/21 19:01 36.8 C 63 18 82/54 L 99 05/29/21 16:27 61 05/29/21 15:43 36.7 C 60 18 101/64 97 05/29/21 12:04 36.5 C 69 18 90/57 L 95 Laboratory Results Short CBC 05/29/21 Range/Units 06:39 WBC 6.90 (4.8-10.8) K/uL Hgb 10.3 L D (12.0-16.0) g/dL Hct 31.7 L (37-47) % Plt Count 273 (130-400) K/uL BMP 05/29/21 06:39 Sodium 141 Potassium 3.8 D Chloride 112 H Carbon Dioxide 26 BUN 9 Creatinine 0.54 L D Glucose 110 H Calcium 7.6 L D Urine 05/28/21 Range/Units 21:10 Urine Color Dark Yellow Urine Appearance Clear (Clear) Urine pH 6.5 (4.5-7.5) Ur Specific [place] 1.031 H (1.000-1.030) Urine Protein Trace H (Negative) Urine Glucose (UA) Negative (Negative) Medications Administered Current Inpatient Medications Acetaminophen (Acetaminophen 325 Mg Tab) 650 mg PO Q6H PRN PRN Reason: Fever/pain Stop: 06/28/21 01:55 Last Admin: 05/29/21 12:51 Dose: 650 mg Documented by: Ascorbic Acid (Ascorbic Acid 500 Mg Tab) 500 mg PO [facility] Stop: 06/28/21 08:59 Last Admin: 05/29/21 07:33 Dose: 500 mg Documented by: Fluoxetine HCl (Fluoxetine Hcl 10 Mg Cap) 10 mg PO [facility] Stop: 06/28/21 08:59 Last Admin: 05/29/21 07:33 Dose: 10 mg Documented by: Hydromorphone HCl (Hydromorphone Inj 0.5 Mg/0.5 Ml Syr) 0.5 mg IV Q4H PRN PRN Reason: Pain Stop: 06/12/21 01:55 Last Admin: 05/29/21 16:54 Dose: 0.5 mg Documented by: Heparin Sodium/Dextrose (Heparin Sodium/Dextrose) 25,000 units in 500 mls @ 25 mls/hr IV .Q20H [facility]; Protocol Stop: 06/27/21 22:14 Last Titration: 05/29/21 19:08 Dose: 1,250 units/hr, 25 mls/hr Documented by: Promethazine HCl 12.5 mg/ (Sodium Chloride) 50.5 mls @ 202 mls/hr IV Q6H PRN PRN Reason: Nausea And Vomiting Stop: 06/28/21 01:55 Lorazepam (Ativan) 0.5 mg in 1 mls @ 1 mls/min IV Q4H PRN PRN Reason: Anxiety/Agitation Stop: 06/28/21 01:55 Lidocaine (Lidocaine 5% 1 Patch) 1 patch TD [facility] Stop: 06/28/21 07:14 Last Admin: 05/29/21 08:02 Dose: 1 patch Documented by: Miscellaneous (Remove Lidoderm Patch) 1 ea N/A DAILY@2100 [facility] Stop: 06/28/21 20:59 Oxycodone HCl (Oxycodone Hcl Ir 5 Mg Tab (Immediate Release)) 5 - 10 mg PO QID PRN PRN Reason: Pain Stop: 06/12/21 06:53 Pantoprazole Sodium (Pantoprazole 40 Mg Tab) 40 mg PO [facility] Stop: 06/28/21 08:59 Last Admin: 05/29/21 07:34 Dose: 40 mg Documented by: (1) Pulmonary emboli Pulmonary embolism type: multiple subsegmental (without acute cor pulmonale) Qualified Code(s): I26.94 - Multiple subsegmental pulmonary emboli without acute cor pulmonale
[2021-05-29] MEDS: oxyCODONE HCL IR 5 MG TAB (IMMEDIATE RELEASE) PO PRN (23:54)
[2021-05-30] MEDS: oxyCODONE HCL IR 5 MG TAB (IMMEDIATE RELEASE) PO PRN (05:46)
[2021-05-30 07:11] LABS: Partial Thromboplastin Ratio 2.6
[2021-05-30 07:20] LABS: Partial Thromboplastin Time 68.5 Seconds (21.0-31.0)
[2021-05-30] MEDS: LIDOCAINE 5% 1 PATCH TD SCH (08:27)
[2021-05-30] MEDS: ASCORBIC ACID 500 MG TAB PO SCH (08:27)
[2021-05-30] MEDS: PANTOprazole 40 MG TAB PO SCH (08:27)
[2021-05-30] MEDS: FLUoxetine HCL 10 MG CAP PO SCH (08:27)
[2021-05-30 08:30] LABS: Hematocrit (blood only) 34.4 % (37-47); Hemoglobin 10.8 g/dL (12.0-16.0); Mean Corpuscular Hemoglobin 26.2 pg (25-34); Mean Corpuscular Hgb Conc 31.4 g/dL (32-36); Mean Corpuscular Volume 83.5 fL (80-100); Mean Platelet Volume 11.2 fL (7.4-10.4); Platelet Count 256 K/uL (130-400); RDW Coefficient of Variation 12.9 % (11.5-14.5); RDW Standard Deviation 39.1 fL (36.4-46.3); Red Blood Count 4.12 M/uL (4.2-5.4); White Blood Count 5.19 K/uL (4.8-10.8)
[2021-05-30 09:01] LABS: BUN Creatinine Ratio 6.1 (10-20); Calcium 8.4 mg/dl (8.5-10.1); Creatinine Clr Calc Pharmacy 152.6 ml/min; Est GFR (African American) 138.8 ml/min; Est GFR (Non-African American) 119.8 ml/min; Potassium 3.8 mmol/L (3.5-5.1)
[2021-05-30] MEDS: HYDROmorphone INJ 0.5 MG/0.5 ML SYR IV PRN (09:09)
[2021-05-30] MEDS: ACETAMINOPHEN 325 MG TAB PO PRN (13:17)
[2021-05-30] MEDS: HEPARIN SODIUM/DEXTROSE 25,000 UNITS/500 ML BAG IV SCH (13:55)
--- NOTE | 2021-05-30 14:54 | Hospitalist Progress Note ---
Date of Service May 30, 2021 Assessment & Plan (1) Pulmonary embolism and infarction: Plan: Several acute segmental pulmonary emboli within the right lower lobe. Pulmonary embolus secondary to recent COVID infection. Patient continues on heparin drip. She has experienced significant right lower lateral chest pain radiating around to her right flank since admission, several days ago. Despite heparin and supportive care efforts with narcotics and lidocaine patches, she has persistent pain now with worsening bilateral pleural effusions on chest x-ray. She appears to have plateaued from a clinical improvement standpoint. Consulting pulmonology in setting of concern for worsened pulmonary infarction. Bleeding was considered with her hypotension, however, hemoglobin is stable at 10.8 from 10.3 yesterday. She is using oxygen but only for comfort, hypoxia is not present. Continue supportive care efforts including lidocaine patches and narcotics as needed. Pulmonology consult for assistance with possibly worsening pulmonary infarction. (2) Anemia: Plan: Likely dilutional secondary to IV fluids, no acute bleeding noted. She has been phlebotomized in the hospital, also. Stable H&H today compared to yesterday. Will trend daily. (3) Pneumonia due to COVID-19 virus: Plan: Recent infection with Covid pneumonia. With ongoing symptoms of pleurisy, cough and symptoms related to PE, will continue isolation at this time. No therapy is indicated. (4) Hypotension: Plan: Hypotension secondary to acute PE. Will give hemodynamic support with normal saline overnight. (5) Headache: Plan: Persistent headache overnight. In setting of recent anticoagulation initiation, a head CT was performed to ensure no active bleeding. Results were discussed with patient and were negative. She confirmed her headache had resolved later this afternoon. (6) Depression: Plan: Continue fluoxetine per home regimen. (7) DVT prophylaxis: Plan: Heparin drip Full code Disposition-to home when medically stable Tatiana Bishop DO [facility] Hospitalist Admission and Anticipated Discharge Date Admission Date: May 28, 2021 Subjective 31-year-old female presented with worsening acute chest pain and shortness of breath, found to have acute pulmonary embolus. Continues to report significant pain in right flank radiating around to back Reports feeling more sleepy today, generalized malaise, positive headache all night that was persistent CT head performed with recent heparin start and no intracranial abnormality seen Hypotensive-started IV fluids Repeat chest x-ray reveals bilateral effusions, concerning for persistent pain, questionable pulmonary infarction on CT scan, pulm consulted Called her back by phone with CT scan result and chest x-ray results, patient reports headache has resolved. Review of Systems Review of Systems: All systems were reviewed and negative except as indicated in HPI above. Physical Exam Physical Exam: CONSTITUTIONAL: WNWD, vitals as above, ill-appearing, NAD but appears uncomfortable in general. EYES: normal conjunctivae, no scleral icterus ENT: external ear and nose normal,MMM RESPIRATORY: clear to auscultation bilaterally, no crackles, rales or wheezes, normal respiratory effort CARDIOVASCULAR: regular rate and rhythm, S1 and 2 heard without murmurs, gallops or rubs, no JVD, no peripheral edema GASTROINTESTINAL: soft, nontender, nondistended. MUSCULOSKELETAL: strength 5/5 throughout, head is normocephalic and atraumatic SKIN: warm and dry NEUROLOGIC: CN 2-12 grossly intact, normal cognition, normal speech, no gross focal deficits. PSYCHIATRIC: alert cooperative and oriented to person, place and time. Results & Data Results & Data ([facility]) Vital Signs (Past 12 Hours) Vital Signs Temp Pulse Pulse Resp BP Pulse Ox 05/30/21 11:41 36.9 C 56 L 20 94/51 L 97 05/30/21 08:29 100/63 05/30/21 08:25 84 05/30/21 04:11 36.9 C 70 18 82/54 L 98 Laboratory Results Short CBC 05/30/21 Range/Units 06:34 WBC 5.19 (4.8-10.8) K/uL Hgb 10.8 L (12.0-16.0) g/dL Hct 34.4 L (37-47) % Plt Count 256 (130-400) K/uL BMP 05/30/21 06:34 Sodium 140 Potassium 3.8 Chloride 109 H Carbon Dioxide 28 BUN 4 L D Creatinine 0.60 Glucose 102 H Calcium 8.4 L Medications Administered Current Inpatient Medications Acetaminophen (Acetaminophen 325 Mg Tab) 650 mg PO Q6H PRN PRN Reason: Fever/pain Stop: 06/28/21 01:55 Last Admin: 05/30/21 13:17 Dose: 650 mg Documented by: Ascorbic Acid (Ascorbic Acid 500 Mg Tab) 500 mg PO [facility] Stop: 06/28/21 08:59 Last Admin: 05/30/21 08:27 Dose: 500 mg Documented by: Fluoxetine HCl (Fluoxetine Hcl 10 Mg Cap) 10 mg PO [facility] Stop: 06/28/21 08:59 Last Admin: 05/30/21 08:27 Dose: 10 mg Documented by: Heparin Sodium/Dextrose (Heparin Sodium/Dextrose) 25,000 units in 500 mls @ 24 mls/hr IV .[id number] [facility]; Protocol Stop: 06/27/21 22:14 Last Admin: 05/30/21 13:55 Dose: 1,200 units/hr, 24 mls/hr Documented by: Promethazine HCl 12.5 mg/ (Sodium Chloride) 50.5 mls @ 202 mls/hr IV Q6H PRN PRN Reason: Nausea And Vomiting Stop: 06/28/21 01:55 Lidocaine (Lidocaine 5% 1 Patch) 1 patch TD [facility] Stop: 06/28/21 07:14 Last Admin: 05/30/21 08:27 Dose: 1 patch Documented by: Miscellaneous (Remove Lidoderm Patch) 1 ea N/A DAILY@0859 [facility] Stop: 06/30/21 08:58 Oxycodone HCl (Oxycodone Hcl Ir 5 Mg Tab (Immediate Release)) 5 - 10 mg PO QID PRN PRN Reason: Pain Stop: 06/12/21 06:53 Last Admin: 05/30/21 05:46 Dose: 10 mg Documented by: Pantoprazole Sodium (Pantoprazole 40 Mg Tab) 40 mg PO [facility] Stop: 06/28/21 08:59 Last Admin: 05/30/21 08:27 Dose: 40 mg Documented by:
--- NOTE | 2021-05-30 15:45 | XRay Report ---
SINGLE VIEW CHEST CLINICAL HISTORY: Hypoxia. Persistent chest pain. Pulmonary embolus. FINDINGS: An AP, portable, upright chest radiograph is compared to chest x-ray and chest CT dated 05/01. The cardiomediastinal silhouette is unremarkable. There are small pleural effusions with biba silar consolidation. These are new from 05/28/2021. No pneumothorax is seen. The bony thorax is grossl y intact. IMPRESSION: There are small pleural effusions with bibasilar consolidation. These are new from 021. ACT 112: Negative or not required by law. Electronically signed by: Kash Reyes M.D. 05/30/2021 3:44 PM
[2021-05-30 15:52] LABS: Partial Thromboplastin Ratio 2.2
[2021-05-30 15:53] LABS: Partial Thromboplastin Time 58.6 Seconds (21.0-31.0)
[2021-05-30] MEDS ORDERED: SODIUM CHLORIDE 0.9% 1000ML 500 ML IV ONE (16:31)
--- NOTE | 2021-05-30 17:07 | CT Scan Report ---
CT SCAN OF THE BRAIN WITHOUT IV CONTRAST CLINICAL HISTORY: Headache. COMPARISON STUDY: CT of the brain dated 05/22/2021. TECHNIQUE: Unenhanced axial CT scan of the brain is performed from the vertex to the skull base. A d ose lowering technique was utilized adhering to the principles of ALARA. CT DOSE: 510.84 mGycm FINDINGS: Brain parenchyma: The brain parenchyma is normal in appearance. There is no hemorrhage, mass effect, or evidence of acute territorial ischemia by CT criteria. Regalado-white matter differentiation is preser melinda. No extra-axial fluid collection is seen. Ventricles, sulci, cisterns: Normal in configuration. Intracranial vasculature: The visualized intracranial vasculature at the skull base is normal in appe arance. Calvarium: Unremarkable. Sinuses and mastoids: There is moderate mucosal thickening within the frontal and ethmoid sinuses. Tr werner mucosal thickening is noted in the sphenoid sinuses. The mastoid air cells are well pneumatized. Orbits: The bony orbits are grossly intact. IMPRESSION: No acute intracranial abnormality. ACT 112: Negative or not required by law. Electronically signed by: Kash Reyes M.D. 05/30/2021 5:05 PM
[2021-05-30] MEDS: SODIUM CHLORIDE 0.9% 1000ML 1,000 ML IV SCH (17:53)
[2021-05-31] MEDS: SODIUM CHLORIDE 0.9% 1000ML 1,000 ML IV SCH (00:41)
[2021-05-31] MEDS: FLUoxetine HCL 10 MG CAP PO SCH (08:06)
[2021-05-31] MEDS: ASCORBIC ACID 500 MG TAB PO SCH (08:06)
[2021-05-31] MEDS: PANTOprazole 40 MG TAB PO SCH (08:06)
[2021-05-31] MEDS: LIDOCAINE 5% 1 PATCH TD SCH (08:06)
[2021-05-31 09:08] LABS: Partial Thromboplastin Ratio 1.7
[2021-05-31 09:29] LABS: Partial Thromboplastin Time 45.8 Seconds (21.0-31.0)
[2021-05-31] MEDS: HEPARIN SODIUM/DEXTROSE 25,000 UNITS/500 ML BAG IV SCH (09:56)
--- NOTE | 2021-05-31 10:37 | Pulmonary Consultation ---
Date of Consultation May 31, 2021 Assessment & Plan (1) Pneumonia due to COVID-19 virus: (2) Pulmonary emboli: Pulmonary embolism type: multiple subsegmental (without acute cor pulmonale) Qualified Code(s): I26.94 - Multiple subsegmental pulmonary emboli without acute cor pulmonale (3) Acute respiratory failure with hypoxia: CT chest 05/28/2021 personally reviewed: Bilateral patchy peripheral infiltrates appreciated bilaterally especially in the lower lobes Right lower lobe segmental and subsegmental pulmonary emboli, Bilateral minimal hilar mediastinal lymphadenopathy --Acute hypoxic respiratory failure Multifactorial Secondary to multilobar COVID-19 pneumonia as well as acute PE COVID-19 PCR positive 05/28/2021 Procalcitonin negative, CRP 8.4 Patient started greater than 14 days ago --Acute PE Would consider provoked given the recent COVID-19 infection COVID-19 being hypercoagulable state Would recommend treatment for at least 3-6 months Plan: Continue with anticoagulation, can transition to p.o. NOACs Given the infiltrates as well as patient needing oxygen I I will start the patient on dexamethasone to be given for 5 more days given she was already on prednisone for 5 days. Add azithromycin for 3 days for atypical coverage. No clear signs of pulmonary infarct on the CAT scan. Start the patient on incentive spirometry as well as flutter valve Guaifenesin twice daily Pain management for the pleuritic chest pain. Please note the above document was generated using voice recognition software. It may contain grammatical, syntax or spelling errors.Any formal questions or concerns about the content, text or information contained within the body of this dictation should be directly addressed to the provider for clarification. History of Present Illness Attending Physician: Tatiana Bishop DO History of Present Illness 31-year-old female with past medical history of GERD, anxiety presented to the hospital with complaints of right-sided pleuritic chest pain and shortness of breath Patient's parents came to visit her around mid April. She started to have symptoms of upper respiratory tract infection around May 14. She had COVID-19 test on May 16 which was positive She started to have right-sided chest pain for which she came to the ER and was found to have PE At the time of examination patient still complains of right-sided chest pain which is worse especially when she is taking a deep breath Cough is decreasing amount. Denies any headache, no nausea or vomiting. Urinating well. No diarrhea. She was saturating 94% on 2 L nasal cannula at rest. Patient has not been vaccinated against COVID-19. Social history: Non-smoker, no illicit drug use, social alcohol Allergies Allergy/AdvReac Type Severity Reaction Status Date / Time morphine AdvReac Unknown headache,nausea,burning Verified 05/28/21 18:06 at IV site Sulfa (Sulfonamide AdvReac Unknown NOT Verified 05/28/21 18:06 Antibiotics) EFFECTIVE FOR PINK EYE Home Medications Medication Instructions Recorded Confirmed Type fluoxetine 10 mg tablet 10 mg PO QAM 12/26/20 05/28/21 History omeprazole 20 mg tablet,delayed 20 mg PO QAM 12/26/20 05/28/21 History release albuterol sulfate 90 mcg/actuation 2 puff INHALATION Q4 PRN 05/22/21 05/28/21 History aerosol inhaler ondansetron 4 mg disintegrating 4 mg PO Q8H PRN #30 tab 05/22/21 05/28/21 Rx tablet ascorbic acid (vitamin C) 500 mg 500 mg PO QAM 05/28/21 05/28/21 History tablet (Vitamin C) zinc 50 mg tablet 50 mg PO QAM 05/28/21 05/28/21 History Patient History Medical History (Updated 05/31/21 @ 10:28 by Dariana Brandon MD) Anxiety Chronic low back pain PT FOR Depression Globus sensation THROAT, UPCOMING PROCEDURE PLANNED TO DETERMINE CAUSE - NOT ABLE TO BE DONE AT PRESENT TIME D/T RESTRICTIONS OF PROCEDURES D/T COVID Hiatal hernia MILD History of anesthesia reaction COME OUT SLOWLY History of infection REISTANT UTI & RESISTANT YEAST INFECTIONS SUMMER 2019 - MUTLIPLE ABX FOR - N/V , 30 POUND WEIGHT LOSS , GLOBUS SENSATION IN THROAT INFECTIONS BOTH HAVE CLEARED - F/U FOR GLOBUS SENSATION IN THROAT REMAINS IN PROGRESS Hypotension CHRONIC LOW BP - 110/80 SOMETIMES LOWER PER PT Nasal congestion MILD, PT REPORTS D/T WINTER ALLERGIES Obesity TMJ (temporomandibular joint disorder) NO HX LOCKING - POPPING Surgical History History of colonoscopy AND ENDOSCOPY History of surgery STEROID INJECTIONS PUT UNDER FOR AND RADIOFREQUENCY PROCEDURE LUMBAR 2010 MOST RECENT INJECTION: 2009 [place] teeth removed X3 Family History Other Family history of diabetes mellitus in father Social History Smoking Status: Never smoker Hx Alcohol Use: No Hx Substance Use: No Preferred Language: Lao Communication Ability: Effective [employer] Required: No Beliefs That Will Affect Care: None Current Living Situation: Family Current Living Situation Comment: SON, PARENTS AND DAD'S MOTHER Feels Safe at Home: Yes Assistive Devices: None Review of Systems Review of Systems: All systems reviewed & are unremarkable except as noted in HPI & below Physical Exam Physical Exam: Constitutional: No acute distress HEENT: EOMI, PERRLA Respiratory system: Decreased air entry bilaterally, no wheeze, rhonchi, positive crackles bilateral lower lobes CVS: S1-S2 positive, no murmurs or gallops Abdomen: Soft, nontender, nondistended, positive bowel sounds x4 Extremities: +2 pulses bilaterally radialis/ dorsalis pedis, no cyanosis, no edema Neuro: Awake alert oriented x3 Psych: Normal mood and affect G/U: No Stacy Skin: no rashes, warm and dry Lymphatic: no cervical or axillary lymphadenopathy Results & Data Results & Data ([facility]) Vital Signs (Past 12 Hours) Vital Signs Temp Pulse Pulse Resp BP Pulse Ox 05/31/21 10:06 76 05/31/21 08:04 37.1 C 80 20 116/64 95 05/31/21 03:37 36.4 C L 70 18 110/62 96 05/31/21 00:34 37.6 C H 90 20 103/66 94 05/30/21 06:34 05/30/21 06:34 PG Care Time/CCT Total # of Minutes Spent Total Time Spent with Patient: Total time spent is greater than 50% in coordination of care (as documented) at patient's floor/unit and/or counseling patient: Coding Level of Care Code 59834 Inpt Consult Level 4 Diagnoses Pneumonia due to COVID-19 virus U07.1; J12.82 Pulmonary emboli I26.94 Pulmonary embolism type: multiple subsegmental (without acute cor pulmonale) Acute respiratory failure with hypoxia J96.01 Time Spent (min) 81
[2021-05-31 15:29] LABS: Partial Thromboplastin Ratio 1.7; Partial Thromboplastin Time 43.5 Seconds (21.0-31.0)
[2021-05-31] MEDS: dexAMETHasone 6 MG in SYRINGE 0 ML IV SCH (15:33)
[2021-05-31] MEDS: AZITHROMYCIN 250 MG TAB PO SCH (16:49)
[2021-05-31] MEDS: guaiFENesin 600 MG TABCR PO SCH (20:15)
--- NOTE | 2021-05-31 20:22 | Hospitalist Progress Note ---
Date of Service May 31, 2021 Assessment & Plan (1) Pulmonary embolism and infarction: Plan: Several acute segmental pulmonary emboli within the right lower lobe. Pulmonary embolus secondary to recent COVID infection. Patient continues on heparin drip. She has experienced significant right lower lateral chest pain radiating around to her right flank since admission, several days ago which is finally starting to improve. Plan for transition to NOAC in next 1-2 days but need to [place] check with pharmacy prior to discharge. (2) Pneumonia due to COVID-19 virus: Plan: Recent infection with Covid pneumonia. With ongoing symptoms of pleurisy, cough and symptoms related to PE, will continue isolation at this time. Per pulm, she will need dexamethasone for 5 more days and azithromycin for 3 days of atypical coverage. Continue incentive spirometry and flutter valve, guaifenesin twice daily started. (3) Anemia: Plan: Likely dilutional secondary to IV fluids, phlebotomy may also be contributing, no acute bleeding noted. Hemoglobin improved to 10.8. Continue to monitor. (4) Hypotension: Plan: Hypotension secondary to acute PE. Resolved after hemodynamic support with IV fluids overnight. (5) Headache: Plan: Persistent headache overnight. In setting of recent anticoagulation initiation, a head CT was performed to ensure no active bleeding. Results were discussed with patient and were negative. She confirmed her headache had resolved later this afternoon. (6) Depression: Plan: Continue fluoxetine per home regimen. (7) DVT prophylaxis: Plan: Heparin drip/transition to Eliquis tonight. Full code Disposition-to home when medically stable [facility]iana Bishop [facility] and Anticipated Discharge Date Admission Date: May 28, 2021 Subjective 31-year-old female presented with worsening acute chest pain and shortness of breath, found to have acute pulmonary embolus. Continues to report significant pain in right flank radiating around to back- improving Headache resolved BP improved after IVF overnight Encouraged to ambulate Review of Systems Review of Systems: All systems were reviewed and negative except as indicated in HPI above. Physical Exam Physical Exam: CONSTITUTIONAL: WNWD, vitals as above, NAD EYES: normal conjunctivae, no scleral icterus ENT: external ear and nose normal, MMM RESPIRATORY: clear to auscultation bilaterally, no crackles, rales or wheezes, normal respiratory effort CARDIOVASCULAR: regular rate and rhythm, S1 and 2 heard without murmurs, gallops or rubs, no JVD, no peripheral edema GASTROINTESTINAL: soft, nontender, nondistended. MUSCULOSKELETAL: strength 5/5 throughout, head is normocephalic and atraumatic SKIN: warm and dry NEUROLOGIC: CN 2-12 grossly intact, normal cognition, normal speech, no gross focal deficits. PSYCHIATRIC: alert cooperative and oriented to person, place and time. Results & Data Results & Data ([facility]) Vital Signs (Past 12 Hours) Vital Signs Temp Pulse Pulse Resp BP Pulse Ox 05/31/21 20:18 36.5 C 88 18 115/87 92 05/31/21 18:02 86 05/31/21 16:53 37.4 C 82 20 107/62 92 05/31/21 11:48 36.9 C 79 20 106/64 94 05/31/21 10:06 76 Medications Administered Current Inpatient Medications Acetaminophen (Acetaminophen 325 Mg Tab) 650 mg PO Q6H PRN PRN Reason: Fever/pain Stop: 06/28/21 01:55 Last Admin: 05/30/21 13:17 Dose: 650 mg Documented by: Ascorbic Acid (Ascorbic Acid 500 Mg Tab) [facility] [place] Stop: 06/28/21 08:59 Last Admin: 05/31/21 08:06 Dose: 500 mg Documented by: Azithromycin (Azithromycin 250 Mg Tab) [facility] [place] Stop: 06/03/21 13:59 Last Admin: 05/31/21 16:49 Dose: 500 mg Documented by: Fluoxetine HCl (Fluoxetine Hcl 10 Mg Cap) 10 mg PO QAM [facility] Stop: 06/28/21 08:59 Last Admin: 05/31/21 08:06 Dose: 10 mg Documented by: Guaifenesin (Guaifenesin 600 Mg Tabcr) 1,200 mg PO Q12 [facility] Stop: 06/30/21 20:59 Last Admin: 05/31/21 20:15 Dose: 1,200 mg Documented by: Heparin Sodium/Dextrose (Heparin Sodium/Dextrose) 25,000 units in 500 mls @ 26 mls/hr IV .[id number] [facility]; Protocol Stop: 06/27/21 22:14 Last Titration: 05/31/21 18:50 Dose: 1,300 units/hr, 26 mls/hr Documented by: Promethazine HCl 12.5 mg/ (Sodium Chloride) 50.5 mls @ 202 mls/hr IV Q6H PRN PRN Reason: Nausea And Vomiting Stop: 06/28/21 01:55 Dexamethasone 6 mg/ Syringe 1.5 mls @ 1 mls/min IV Q24H [facility] Stop: 06/05/21 13:59 Last Admin: 05/31/21 15:33 Dose: 1 mls/min Documented by: Lidocaine (Lidocaine 5% 1 Patch) 1 patch TD [facility] Stop: 06/28/21 07:14 Last Admin: 05/31/21 08:06 Dose: 1 patch Documented by: Miscellaneous (Remove Lidoderm Patch) 1 ea N/A DAILY@0859 [facility] Stop: 06/30/21 08:58 Last Admin: 05/31/21 08:06 Dose: 1 ea Documented by: Oxycodone HCl (Oxycodone Hcl Ir 5 Mg Tab (Immediate Release)) 5 - 10 mg PO QID PRN PRN Reason: Pain Stop: 06/12/21 06:53 Last Admin: 05/30/21 05:46 Dose: 10 mg Documented by: Pantoprazole Sodium (Pantoprazole 40 Mg Tab) [facility] [place] Stop: 06/28/21 08:59 Last Admin: 05/31/21 08:06 Dose: 40 mg Documented by:
[2021-06-01] MEDS: PANTOprazole 40 MG TAB PO SCH (08:14)
[2021-06-01] MEDS: APIXABAN 5 MG TABLET PO SCH ×3 (08:14→20:22)
[2021-06-01] MEDS: ASCORBIC ACID 500 MG TAB PO SCH (08:14)
[2021-06-01] MEDS: FLUoxetine HCL 10 MG CAP PO SCH (08:14)
[2021-06-01] MEDS: AZITHROMYCIN 250 MG TAB PO SCH (08:14)
[2021-06-01] MEDS: guaiFENesin 600 MG TABCR PO SCH ×2 (08:15→20:22)
[2021-06-01] MEDS: LIDOCAINE 5% 1 PATCH TD SCH (08:17)
--- NOTE | 2021-06-01 09:25 | Pulmonology Progress Note ---
Date of Service June 01, 2021 Assessment & Plan (1) Pneumonia due to COVID-19 virus: (2) Pulmonary emboli: Pulmonary embolism type: multiple subsegmental (without acute cor pulmonale) Qualified Code(s): I26.94 - Multiple subsegmental pulmonary emboli without acute cor pulmonale (3) Acute respiratory failure with hypoxia: Plan: CT chest 05/28/2021 personally reviewed: Bilateral patchy peripheral infiltrates appreciated bilaterally especially in the lower lobes Right lower lobe segmental and subsegmental pulmonary emboli, Bilateral minimal hilar mediastinal lymphadenopathy --Acute hypoxic respiratory failure Multifactorial Secondary to multilobar COVID-19 pneumonia as well as acute PE COVID-19 PCR positive 05/28/2021 Procalcitonin negative, CRP 8.4 Patient started greater than 14 days ago --Acute PE Would consider provoked given the recent COVID-19 infection COVID-19 being hypercoagulable state Would recommend treatment for at least 3-6 months Plan: Complete the course of dexamethasone for total of 5 days Complete the course of azithromycin for total of 3 days Start the patient on incentive spirometry as well as flutter valve Guaifenesin twice daily Pain management for the pleuritic chest pain. Case cussed with Dr. Bishop as well as RN No further recommendation from pulmonary perspective. Please call directly with any questions. Please note the above document was generated using voice recognition software. It may contain grammatical, syntax or spelling errors.Any formal questions or co ncerns about the content, text or information contained within the body of this dictation should be directly addressed to the provider for clarification. Admission and Anticipated Discharge Date Admission Date: May 28, 2021 Subjective Patient case was discussed with RN. Patient is on room air saturating 92-93% Pain has significantly decreased. She has been using incentive spirometry as well as flutter valve. Review of Systems Review of Systems: Other Physical Exam Physical Exam: Patient not examined due to coronavirus restrictions and attempts to minimize exposure to staff and consider PPE. Please refer to the hospitalist exam for complete details. Results & Data Results & Data ([facility]) Vital Signs (Past 12 Hours) Vital Signs Temp Pulse Resp BP Pulse Ox 06/01/21 08:10 36.6 C 95 H 18 117/69 92 06/01/21 05:02 36.2 C L 80 20 108/68 91 06/01/21 00:04 37.2 C 88 18 110/74 93 05/30/21 06:34 05/30/21 06:34 PG Care Time/CCT Total # of Minutes Spent Total Time Spent with Patient: Total time spent is greater than 50% in coordination of care (as documented) at patient's floor/unit and/or counseling patient: Coding Level of Care Code 14716 Subseq Hosp Care Lvl 2 Diagnoses Pneumonia due to COVID-19 virus U07.1; J12.82 Pulmonary emboli I26.94 Pulmonary embolism type: multiple subsegmental (without acute cor pulmonale) Acute respiratory failure with hypoxia J96.01
[2021-06-01] MEDS: ACETAMINOPHEN 325 MG TAB PO PRN (09:48)
[2021-06-01 12:45] LABS: Basophils # (auto) 0.01 K/uL (0-0.2); Basophils % (auto) 0.1 %; Hematocrit (blood only) 31.3 % (37-47); Hemoglobin 10.4 g/dL (12.0-16.0); Immature Granulocytes # (auto) 0.03 K/uL (0.00-0.02); Immature Granulocytes % (auto) 0.3 %; Lymphocytes # (auto) 1.02 K/uL (1.2-3.4); Lymphocytes % (auto) 11.1 %; Mean Corpuscular Hemoglobin 26.8 pg (25-34); Mean Corpuscular Hgb Conc 33.2 g/dL (32-36); Mean Corpuscular Volume 80.7 fL (80-100); Mean Platelet Volume 9.9 fL (7.4-10.4); Monocytes # (auto) 0.88 K/uL (0.11-0.59); Monocytes % (auto) 9.6 %; Neutrophils # (auto) 7.21 K/uL (1.4-6.5); Neutrophils % (auto) 78.9 %; Platelet Count 294 K/uL (130-400); RDW Coefficient of Variation 12.8 % (11.5-14.5); RDW Standard Deviation 37.1 fL (36.4-46.3); Red Blood Count 3.88 M/uL (4.2-5.4); White Blood Count 9.15 K/uL (4.8-10.8)
[2021-06-01 13:14] LABS: Albumin Globulin Ratio 0.6 (0.9-2); Albumin Level 2.9 gm/dl (3.4-5.0); BUN Creatinine Ratio 13.4 (10-20); C Reactive Protein 7.27 mg/dl (0-0.29); Calcium 9.1 mg/dl (8.5-10.1); Creatinine Clr Calc Pharmacy 170.1 ml/min; Est GFR (African American) 143.7 ml/min; Globulin 4.5 gm/dl (2.5-4.0); Potassium 3.5 mmol/L (3.5-5.1); Total Protein 7.4 gm/dl (6.4-8.2)
[2021-06-01 13:17] LABS: Bilirubin,Total 0.5 mg/dl (0.2-1)
--- NOTE | 2021-06-01 14:28 | Hospitalist Progress Note ---
Date of Service June 01, 2021 Assessment & Plan (1) Pulmonary embolism and infarction: Plan: Several acute segmental pulmonary emboli within the right lower lobe. Pulmonary embolus secondary to recent COVID infection. Reports shortness of breath is okay. However does have productive cough. Remains on room air. Continue with Eliquis 10 mg twice daily for total of seven days followed by 5 mg twice daily. (2) Pneumonia due to COVID-19 virus: Plan: Recent infection with Covid pneumonia. With ongoing symptoms of pleurisy, cough and symptoms related to PE, will continue isolation at this time. Appreciate pulmonary medicine input. Continue with dexamethasone for total 5 days.. Continue Zithromax 500 mg daily. (3) Anemia: Plan: Likely dilutional secondary to IV fluids, phlebotomy may also be contributing, no acute bleeding noted. Hemoglobin improved to 10.8. Continue to monitor. (4) Hypotension: Plan: Resolved (5) Headache: Plan: Patient reported headache in the setting of anticoagulation. CT head was negative for any acute findings. Absence of any headache today. (6) Depression: Plan: Continue fluoxetine per home regimen. (7) DVT prophylaxis: Plan: Full code Disposition-to home when medically stable Admission and Anticipated Discharge Date Admission Date: May 28, 2021 Subjective Doing okay this morning. Reports shortness of breath is okay. Does have productive cough. Remains afebrile. Appetite is still not that good. Reports nausea but no vomiting. Currently on room air. Remains afebrile. Review of Systems Review of Systems: All systems reviewed & are unremarkable except as noted in HPI & below Physical Exam Physical Exam: General: A&Ox3 HENT: NCAT, MMM, EOMI Eyes: PERRLA Neck: Supple, normal range of motion CVS: normal rate and rhythm Resp: b/l clear breath sounds Abdomen: Soft, ND/NT, +BS Extremities: No c/c/e Neuro: face symmetric, no focal deficit Skin: no rashes/lesions/errythema MSK: no joint swelling/erythema Results & Data Results & Data ([facility]) Vital Signs (Past 12 Hours) Vital Signs Temp Pulse Resp BP Pulse Ox 06/01/21 11:53 36.6 C 83 18 123/68 93 06/01/21 08:10 36.6 C 95 H 18 117/69 92 06/01/21 05:02 36.2 C L 80 20 108/68 91
[2021-06-01] MEDS: dexAMETHasone 6 MG in SYRINGE 0 ML IV SCH (16:58)
[2021-06-01] MEDS: DOCUSATE SODIUM 100 MG CAP PO SCH ×2 (16:59→20:22)
[2021-06-01] MEDS: POLYETHYLENE (MIRALAX) 17 GM PACK PO SCH (16:59)
[2021-06-01] MEDS: SENNA 8.6 MG TAB PO SCH (16:59)
[2021-06-02] MEDS: guaiFENesin 600 MG TABCR PO SCH (08:35)
[2021-06-02] MEDS: PANTOprazole 40 MG TAB PO SCH (08:36)
[2021-06-02] MEDS: AZITHROMYCIN 250 MG TAB PO SCH (08:36)
[2021-06-02] MEDS: SENNA 8.6 MG TAB PO SCH (08:36)
[2021-06-02] MEDS: DOCUSATE SODIUM 100 MG CAP PO SCH (08:36)
[2021-06-02] MEDS: APIXABAN 5 MG TABLET PO SCH (08:36)
[2021-06-02] MEDS: ASCORBIC ACID 500 MG TAB PO SCH (08:36)
[2021-06-02] MEDS: FLUoxetine HCL 10 MG CAP PO SCH (08:36)
[2021-06-02] MEDS: LIDOCAINE 5% 1 PATCH TD SCH (08:37)
[2021-06-02] MEDS: POLYETHYLENE (MIRALAX) 17 GM PACK PO SCH (08:37)
--- NOTE | 2021-06-02 13:30 | Discharge Summary ---
Date of Service June 02, 2021 Admission HPI Per Admitting Provider History obtained from patient and records. Medical history significant for mood disorder, recent COVID 19 pneumonia. 2 weeks ago, patient noted cough symptoms with fever. Recent COVID-19 contacts. Outpatient COVID-19 test positive. Worsening symptoms despite outpatient prednisone course. [facility] ER evaluation last week. Patient subsequently sent home. Cough symptoms from Covid 19 illness subsequently resolved. This morning patient noted achy right flank and pleuritic right-sided chest pain with shortness of breath. No unusual cough symptoms. No prior history of blood clots or immediate family members with blood clot history. Patient consulted ER for evaluation. Medical History as above Surgical History : Right shoulder surgery, dental surgery Family History : Breast cancer, GIST, heart disease, stroke Personal/Social history : Non-smoker, occasional EtOH intake, purchasing work Admission Exam Per Admitting Provider GENERAL: Slightly uncomfortable, pleasant, obese, no respiratory distress SKIN: Normal color, warm HEENT: Bespectacled, [place] palpebral conjunctivae, no ptosis, dry buccal mucosa NECK : Supple, no tenderness CHEST : CTA, right chest wall tenderness HEART : RRR, no obvious murmurs ABDOMEN: Some distention, minimal right flank tenderness EXTREMITIES : Minimal LE swelling, no LE tenderness, no other conspicuous deformities noted NEUROLOGIC : Coherent, no facial asymmetry, no other gross focality Principal Diagnosis pulmonary embolism Discharge Exam General: A&Ox3 HENT: NCAT, MMM, EOMI Eyes: PERRLA Neck: Supple, normal range of motion CVS: normal rate and rhythm Resp: b/l clear breath sounds Abdomen: Soft, ND/NT, +BS Extremities: No c/c/e Neuro: face symmetric, no focal deficit Skin: no rashes/lesions/errythema MSK: no joint swelling/erythema Discharge Data Allergies Allergy/AdvReac Type Severity Reaction Status Date / Time morphine AdvReac Unknown headache,nausea,burning Verified 05/28/21 18:06 at IV site Sulfa (Sulfonamide AdvReac Unknown NOT Verified 05/28/21 18:06 Antibiotics) EFFECTIVE FOR PINK EYE Consultations 05/28/21 20:29 ED Decision to Admit Stat 05/30/21 14:51 Consult Pulmonology Routine Ordered Studies 05/28/21 16:33 CT angio abdomen pelvis w con Stat CT angio chest PE protocol Stat 05/30/21 14:51 CT head/brain wo con Urgent Hospital Course (1) Pulmonary embolism and infarction: Several acute segmental pulmonary emboli within the right lower lobe. Pulmonary embolus secondary to recent COVID infection. On the day of discharge patient was doing okay. Hemodynamically patient was doing fine. Patient denied any shortness of breath, chest pain, palpitations or any dizziness. Patient was on room air she was on Eliquis at the time of discharge. (2) Pneumonia due to COVID-19 virus: Recent infection with Covid pneumonia. Appreciate pulmonary medicine input. Continue with dexamethasone for total 5 days.. Continue Zithromax 500 mg daily. (3) Anemia: Stable; please obtain CBC to monitor hgb. (4) Hypotension: Resolved (5) Headache: Patient reported headache in the setting of anticoagulation. CT head was negative for any acute findings. Absence of any headache on the day of discharge. (6) Depression: Continue fluoxetine per home regimen. Discharge Plan Discharge Items Patient Disposition: Home - Self-Care Reason For Visit: PE, HX COVID Discharge Diagnosis: Pulmonary embolism Condition on Discharge: Fair Activity: Resume your previous activity Non-emergency contact: Primary Care Provider Call non-emergency contact if: your symptoms worsen Follow-up/Referrals: Scottie Goncalves MD [Primary Care Provider] - Diet: Regular Addtl Attending Provider Instructions: Start taking dexamethasone from tomorrow for 2 more days. Continue taking Eliquis 10 mg twice daily until 06/07 followed by 5 mg twice daily Pending Studies at Discharge: No Stand-Alone Forms: [facility], Smoking Cessation Medications and DC Order Prescriptions: New Eliquis 5 mg Tablet 10 mg PO BID Qty: 60 RF: 0 dexamethasone 6 mg tablet 6 mg PO DAILY Qty: 2 RF: 0 Continued fluoxetine 10 mg Tablet 10 mg PO QAM RF: 0 omeprazole 20 mg Tablet,Delayed Release (Dr/Ec) 20 mg PO QAM RF: 0 albuterol sulfate 90 mcg/actuation HFA aerosol inhaler 2 puff INHALATION Q4 PRN (Reason: Cough) RF: 0 ondansetron 4 mg tablet,disintegrating 4 mg PO Q8H PRN (Reason: nausea and vomiting) Qty: 30 RF: 0 ascorbic acid (vitamin C) [Vitamin C] 500 mg Tablet 500 mg PO QAM RF: 0 zinc 50 mg Tablet 50 mg PO QAM RF: 0 Discharge Orders: Discharge Order (Routine); Ordered 06/02/21 Ordered By: Ashley Macdonald Admission Data Admit Date/Time: 05/28/21 23:11 Attending Provider: Ashley Macdonald Admit Provider: Al Beal Primary Care Provider: Scottie Goncalves Other Providers: Al Beal ; Dariana Brandon
[2021-06-02] MEDS: dexAMETHasone 6 MG in SYRINGE 0 ML IV SCH (15:27)
== END 2021-06-02 03:50 | disposition home or self-care (01) | DRG 177 ==
LOC: ED 14:20 → 2S 23:11 → SUATTDRO 23:11 → 2S 05-29 01:53

== ENCOUNTER 2025-05-13 09:27 | Inpatient (IN) ==
[2025-05-14] MEDS ORDERED: CALCIUM CARBONATE 500 MG CHEWABLE TAB PO PRN (08:14)
[2025-05-14] MEDS ORDERED: ACETAMINOPHEN 500 MG TAB PO PRN (08:14)
[2025-05-14 08:56] LABS: Hematocrit (blood only) 35.8 % (37.0-47.0); Hemoglobin 12.3 g/dl (12.0-16.0); Mean Corpuscular Hemoglobin 31.1 pg (25.0-34.0); Mean Corpuscular Volume 90.6 fL (80.0-100.0); Platelet Count 195 K/uL (130-400); RDW Standard Deviation 54.1 fL (36.4-46.3); Red Blood Count 3.95 M/uL (4.20-5.40); White Blood Count 6.96 K/ul (4.8-10.8)
[2025-05-14] MEDS: DINOPROSTONE 10 MG INSERT PV ONE (09:12)
[2025-05-14 09:14] LABS: Alanine Aminotransferase 18.0 U/L (7-52); Albumin Globulin Ratio 1.1 (0.9-2); Alkaline Phosphatase 161.0 U/L (34-104); Anion Gap 8.0 (3-11); Bilirubin,Total 0.4 mg/dl (0.2-1.0); Blood Urea Nitrogen 9.0 mg/dl (6-23); Calcium 8.4 mg/dl (8.6-10.3); Carbon Dioxide 23.0 mmol/L (21-32); Chloride 107.0 mmol/L (98-107); Creatinine Clr Calc Pharmacy 152.7 ml/min; Globulin 2.8 gm/dl (2.5-4.0); Glucose 135.0 mg/dl (70-99(Fasting)); Potassium 3.4 mmol/L (3.5-5.1); Sodium 138.0 mmol/L (136-145); Total Protein 5.9 gm/dl (6.0-8.3)
[2025-05-14] MEDS ORDERED: BUTORPHANOL TARTRATE 1 MG/ML VIAL IV PRN (09:30)
--- NOTE | 2025-05-14 09:48 | History & Physical Report ---
Date of Service May 14, 2025 Assessment & Plan (1) (spontaneous vaginal delivery): (2) Cholestasis during in third trimester: Plan: 34-year-old -0-0-2 at 38 weeks of gestation, scheduled for induction of labor at term for ICP, Vital signs stable afebrile, GBS negative, heart rate reassuring, Asymptomatic left Bartholin cyst noted, patient desires drainage after delivery, due to history of Bartholin gland cyst infection cervix unfavorable, Cervidil is placed for cervical ripening, discussed what to expect during induction of labor, All questions were answered, Continue to monitor (3) Gestational diabetes, diet controlled: Plan: serum glucose 135 mg/dL, after breakfast, Plan to repeat before lunch and then 2 hours after each meal. (4) Bartholin gland cyst: (5) AMA (advanced maternal age) multigravida 35+: Admission and Anticipated Discharge Date Admission Date: May 14, 2025 History of Present Illness Chief Complaint: Induction for ICP Primary Care Provider: Scottie Goncalves MD patient is a 34-year-old -0-0-2 at 38 weeks of gestation who was scheduled for induction of labor at term for cholestasis of with persistent itching and elevated bile acid levels. She has been on Ally 300 mg 3 times daily with some relief from itching. She has no complaints today, denies contractions, leakage of fluid, vaginal bleeding. She reports good movements. Her has been complicated by, 1. AMA, declined changing testing, 2. GDM A1, diet-controlled gestational diabetes, 3. History of cardiac murmur, has seen cardiology with normal functioning heart on Echo, no symptoms. 4. history of depression per chart, has been on Prozac, prescribed by her primary care doctor, patient denies depression, she states she takes medication to focus better, 5. Left Bartholin cyst patient noted during last few weeks of desires it to be removed after delivery, denies any pain or discomfort. GBS negative, no other medical problems. Allergies Allergy/AdvReac Type Severity Reaction Status Date / Time metronidazole [From Flagyl] Allergy Nausea Verified 05/08/25 15:51 morphine AdvReac Unknown headache,nausea,burning Verified 05/28/21 18:06 at IV site Sulfa (Sulfonamide AdvReac Unknown NOT Verified 05/28/21 18:06 Antibiotics) EFFECTIVE FOR PINK EYE Home Medications Medication Instructions Recorded Confirmed Type fluoxetine 10 mg tablet 20 mg PO QAM 12/26/20 05/14/25 History ondansetron 4 mg disintegrating 4 mg PO Q8H PRN nausea and 05/22/21 05/14/25 Rx tablet vomiting #30 tabs docusate sodium 100 mg capsule 100 mg PO DAILY 05/08/25 05/14/25 History (Colace) ferrous sulfate 325 mg (65 mg 325 mg PO BID 05/08/25 05/14/25 History iron) tablet vitamins no.159-iron 1 tab PO DAILY 05/08/25 05/14/25 History fumarate 28 mg-folic acid 800 mcg tablet ( Vitamin) ursodiol 300 mg capsule 300 mg PO TID 05/08/25 05/14/25 History Patient History Medical History (spontaneous vaginal delivery) X 2 (2011, 2022) Nasal congestion MILD, PT REPORTS D/T WINTER ALLERGIES History of infection REISTANT UTI & RESISTANT YEAST INFECTIONS SUMMER 2019 - MUTLIPLE ABX FOR - N/V , 30 POUND WEIGHT LOSS , GLOBUS SENSATION IN THROAT INFECTIONS BOTH HAVE CLEARED - F/U FOR GLOBUS SENSATION IN THROAT REMAINS IN PROGRESS History of anesthesia reaction COME OUT SLOWLY Hiatal hernia MILD Chronic low back pain PT FOR TMJ (temporomandibular joint disorder) NO HX LOCKING - POPPING Anxiety Hypotension CHRONIC LOW BP - 110/80 SOMETIMES LOWER PER PT Globus sensation THROAT, UPCOMING PROCEDURE PLANNED TO DETERMINE CAUSE - NOT ABLE TO BE DONE AT PRESENT TIME D/T RESTRICTIONS OF PROCEDURES D/T COVID Surgical History History of colonoscopy AND ENDOSCOPY History of surgery STEROID INJECTIONS PUT UNDER FOR AND RADIOFREQUENCY PROCEDURE LUMBAR 2011 MOST RECENT INJECTION: 2010 [place] teeth removed X3 Family History Other Family history of diabetes mellitus in father Social History Smoking Status: Never smoker Second Hand Exposure: No; Do You Dip or Chew Tobacco: No; Tobacco Cessation Education Requested by Patient: No Hx Alcohol Use: No Hx Substance Use: No Preferred Language: Yi Communication Ability: Effective Digital Imaging Specialist Required: No Beliefs That Will Affect Care: None marital status: Current Living Situation: Spouse Current Living Situation Comment: SON, PARENTS AND DAD'S MOTHER Other Information That Helps Us Care for You: No Feels Safe at Home: Yes Safety Concerns: Feels Safe At This Time Assistive Devices: None 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 History no history of STDs, no history of chlamydia, gonorrhea, herpes Review of Systems as per Subjective / HPI Physical Exam Constitutional: WD/WN, vitals as above well developed, well nourished and comfortable Gastrointestinal (Abdomen): normal bowel sounds, soft, nontender, no hepatosplenomegaly ( gravid, Parag's 7 to 8 pounds) Genitourinary: + bartholin cyst ( left labial, 3 x 3 cm , soft, nontender, no redness) Manual OB Exam: + cervical dilation 1 cm, + cervical effacement 30% and + station high OB Exam Monitor Tracing: + external uterine monitor used and + category I bedside ultrasound was done by myself, single IUP, vertex presentation, placenta anterior, EFW 3477 g, AFV within normal limits Results & Data Vital Signs (Past 12 Hours) Vital Signs Temp Pulse Resp BP O2 Del Method 05/14/25 08:07 37.2 C 16 Room Air 05/14/25 08:07 96 H 138/71 Laboratory Results Lab Results 05/14/25 Range/Units 08:31 WBC 6.96 (4.8-10.8) K/ul RBC 3.95 L (4.20-5.40) M/uL Hgb 12.3 (12.0-16.0) g/dl Hct 35.8 L (37.0-47.0) % MCV 90.6 (80.0-100.0) fL MCH 31.1 (25.0-34.0) pg MCHC 34.4 (32.0-36.0) g/dL RDW Std Deviation 54.1 H (36.4-46.3) fL RDW Coeff of Cee 16.4 H (11.5-14.5) % Plt Count 195 (130-400) K/uL MPV 10.5 (9.4-12.4) fL Sodium 138 (136-145) mmol/L Potassium 3.4 L (3.5-5.1) mmol/L Chloride 107 (98-107) mmol/L Carbon Dioxide 23 (21-32) mmol/L Anion Gap 8 (3-11) BUN 9 (6-23) mg/dl Creatinine 0.59 L (0.6-1.2) mg/dl Est Cr Clr Drug Dosing 152.7 ml/min eGFR 119.71 BUN/Creatinine Ratio 15.3 (10-20) Glucose 135 H (70-99(Fasting)) mg/dl Calcium 8.4 L (8.6-10.3) mg/dl Total Bilirubin 0.4 (0.2-1.0) mg/dl AST 19 (13-39) U/L ALT 18 (7-52) U/L Alkaline Phosphatase 161 H (34-104) U/L Total Protein 5.9 L (6.0-8.3) gm/dl Albumin 3.1 L (3.4-5.0) gm/dl Globulin 2.8 (2.5-4.0) gm/dl Albumin/Globulin Ratio 1.1 (0.9-2) (3) Gestational diabetes, diet controlled Trimester: third trimester Qualified Code(s): O24.410 - Gestational diabetes mellitus in , diet controlled
--- NOTE | 2025-05-14 14:36 | Obstetrical Progress Note ---
Date of Service May 14, 2025 Assessment & Plan Admission and Anticipated Discharge Date Admission Date: May 14, 2025 Subjective Patient is reevaluated. She feels well, no complaints. She has been feeling mild irregular contractions, they are not very painful to her cry for pain medications. She has been ambulating in hallways and had lunch earlier, denies leakage of fluid, vaginal bleeding, nausea vomiting. heart rate category 1, continue to monitor closely. Results & Data Vital Signs (Past 12 Hours) Vital Signs Temp Pulse Resp BP O2 Del Method 05/14/25 11:30 36.8 C 16 05/14/25 11:30 36.8 C 87 16 122/70 05/14/25 08:07 37.2 C 16 Room Air 05/14/25 08:07 96 H 138/71
--- NOTE | 2025-05-14 19:44 | Obstetrical Progress Note ---
Date of Service May 14, 2025 Assessment & Plan Admission and Anticipated Discharge Date Admission Date: May 14, 2025 Subjective patient desires to be checked. She has been feeling contractions regularly every 3 minutes and they are getting more painful. Pain is 6 out of 10. Vaginal exam, cervix is 3 cm dilated, 60% effaced, head is lower -2, with a bulging bag, Cervidil is in place, heart rate category 1, patient desires epidural but not now maybe in an hour when the Cervidil was removed, She wants to ambulate for now. Continue to monitor closely, All questions were answered. Results & Data Vital Signs (Past 12 Hours) Vital Signs Temp Pulse Resp BP O2 Del Method 05/14/25 18:56 36.7 C 75 18 121/76 05/14/25 15:31 68 135/76 05/14/25 15:30 18 05/14/25 15:30 36.8 C 18 05/14/25 11:30 36.8 C 16 05/14/25 11:30 36.8 C 87 16 122/70 05/14/25 08:07 37.2 C 16 Room Air 05/14/25 08:07 96 H 138/71
[2025-05-14] MEDS ORDERED: ONDANSETRON INJ 2 MG/ML 2 ML VIAL IV PRN (20:41)
[2025-05-14] MEDS ORDERED: NALOXONE HCL 1 MG in SODIUM CHLORIDE 0.9% 1,000 ML IV PRN (20:41)
[2025-05-14] MEDS ORDERED: SODIUM CHLORIDE 0.9% PF INJ 10 ML VIAL EPI PRN (20:41)
[2025-05-14] MEDS ORDERED: LIDOCAINE 2% MPF LOCAL 5 ML VIAL EPI PRN (20:41)
[2025-05-14] MEDS ORDERED: fentANYL 2 MCG/ML BUPIVacaine 0.125%-NSS 100ML BAG EPI PRN (20:41)
[2025-05-14] MEDS ORDERED: NALBUPHINE HCL INJ 10 MG/ML AMP IV PRN (20:41)
[2025-05-14] MEDS ORDERED: diphenhydrAMINE 50 MG/ML VIAL IV PRN (20:41)
[2025-05-14] MEDS ORDERED: NALOXONE HCL 0.4 MG/1 ML VIAL/CARP IV PRN (20:41)
[2025-05-14] MEDS ORDERED: BUPIVACAINE 0.25% PF 30 ML VIAL EPI PRN (20:41)
[2025-05-14] MEDS ORDERED: ROPIVACAINE 0.5% PF 5 MG/ML 20 ML VIAL EPI PRN (20:41)
--- NOTE | 2025-05-14 20:41 | Anesthesiology Consultation ---
Date of Service May 14, 2025 Assessment & Plan ASA ASA2 Proposed Anesthesia Anesthesia Type: Labor Epidural Risk / Benefits Reviewed With: PT / POA / Parent / Guardian, Accepts Plan and Informed Consent Obtained History Height/Weight Height: 5 ft 5 in Weight: 97.976 kg Allergies Allergy/AdvReac Type Severity Reaction Status Date / Time metronidazole [From Flagyl] Allergy Nausea Verified 05/08/25 15:51 morphine AdvReac Unknown headache,nausea,burning Verified 05/28/21 18:06 at IV site Sulfa (Sulfonamide AdvReac Unknown NOT Verified 05/28/21 18:06 Antibiotics) EFFECTIVE FOR PINK EYE Medications Home Medications Medication Instructions Recorded Confirmed Last Taken fluoxetine 10 mg tablet 20 mg PO QAM 12/26/20 05/14/25 05/13/25 ondansetron 4 mg disintegrating 4 mg PO Q8H PRN nausea and 05/22/21 05/14/25 Unknown tablet vomiting #30 tabs docusate sodium 100 mg capsule 100 mg PO DAILY 05/08/25 05/14/25 05/13/25 (Colace) ferrous sulfate 325 mg (65 mg 325 mg PO BID 05/08/25 05/14/25 05/13/25 iron) tablet vitamins no.159-iron 1 tab PO DAILY 05/08/25 05/14/25 05/13/25 fumarate 28 mg-folic acid 800 mcg tablet ( Vitamin) ursodiol 300 mg capsule 300 mg PO TID 05/08/25 05/14/25 05/13/25 Active Medications Generic Name Dose Route Start Last Admin Trade Name Freq PRN Reason Stop Dose Admin Ursodiol 300 mg 05/14/25 14:00 05/14/25 13:56 Ursodiol 300 Mg Cap PO 06/13/25 13:59 300 mg TID RAND Administration Past Medical History Medical History (spontaneous vaginal delivery) X 2 (2022) Nasal congestion MILD, PT REPORTS D/T WINTER ALLERGIES History of infection REISTANT UTI & RESISTANT YEAST INFECTIONS SUMMER 2019 - MUTLIPLE ABX FOR - N/V , 30 POUND WEIGHT LOSS , GLOBUS SENSATION IN THROAT INFECTIONS BOTH HAVE CLEARED - F/U FOR GLOBUS SENSATION IN THROAT REMAINS IN PROGRESS History of anesthesia reaction COME OUT SLOWLY Hiatal hernia MILD Chronic low back pain PT FOR TMJ (temporomandibular joint disorder) NO HX LOCKING - POPPING Anxiety Hypotension CHRONIC LOW BP - 110/80 SOMETIMES LOWER PER PT Globus sensation THROAT, UPCOMING PROCEDURE PLANNED TO DETERMINE CAUSE - NOT ABLE TO BE DONE AT PRESENT TIME D/T RESTRICTIONS OF PROCEDURES D/T COVID Exercise / Class Metabolic Activity II 4-5 Yardwork/Stairs/Walk up hill Past Family History Family History Other Family history of diabetes mellitus in father Past Surgical History Surgical History History of colonoscopy AND ENDOSCOPY History of surgery STEROID INJECTIONS PUT UNDER FOR AND RADIOFREQUENCY PROCEDURE LUMBAR 2011 MOST RECENT INJECTION: 2009 [place] teeth removed X3 Past Anesthesia History No Hx of Anesthesia Complications and No Family Hx of Anesthesia Complications History of PONV No Hx of PONV and No Hx of Motion Sickness Social History Smoking Status: Never smoker Do You Dip or Chew Tobacco: No Hx Alcohol Use: No Alcohol type: wine alcohol intake frequency: holidays/special occasions only Hx Substance Use: No substance use type: does not use Review of Systems denies fever/cough/ colds/ chest pain/ SOB/ REENA denies REENA Physical Exam Vital Signs Last Vital Signs Temp 36.7 C 05/14/25 18:56 Pulse 75 05/14/25 18:56 Resp 18 05/14/25 18:56 BP 121/76 05/14/25 18:56 O2 Del Method Room Air 05/14/25 08:07 ENMT Mouth: no TMJ abnormality and no dentition abnormality Thyromental Distance: > or= 3.5 Finger Breadths Mallampati Class: II Neck neck extension not limited Respiratory normal respiratory effort; no respiratory distress Auscultation: lungs clear to auscultation bilaterally Cardiovascular Rate/Rhythm: regular rate and regular rhythm Neurologic moves all extremities Psychiatric Orientation: alert and oriented x 3 Testing Laboratory Results 05/14/25 08:31 05/14/25 08:31 05/14/25 05/14/25 05/14/25 19:09 13:58 11:35 POC Glucose 140 H 103 H 86
[2025-05-14] MEDS: LACTATED RINGER'S 1,000 ML IV PRN (20:44)
[2025-05-14] MEDS: LIDOCAINE 2%/EPINEPHRINE 1:200,000 20 ML PF EPI STA (21:03)
[2025-05-14] MEDS: SODIUM CHLORIDE 0.9% PF INJ 10 ML VIAL EPI STA (21:03)
[2025-05-14] MEDS: BUPIVACAINE 0.25% PF 30 ML VIAL EPI STA (21:04)
--- NOTE | 2025-05-14 21:18 | Obstetrical Progress Note ---
Date of Service May 14, 2025 Assessment & Plan Admission and Anticipated Discharge Date Admission Date: May 14, 2025 Subjective patient is sitting up and getting epidural now, she was more painful and asked for epidural. Cervidil was removed by her nurse about 15 minutes ago. heart rate had been category 1, Continue to monitor closely. Results & Data Vital Signs (Past 12 Hours) Vital Signs Temp Pulse Resp BP Pulse Ox 05/14/25 21:11 92 H 98 05/14/25 18:56 36.7 C 75 18 121/76 05/14/25 15:31 68 135/76 05/14/25 15:30 18 05/14/25 15:30 36.8 C 18 05/14/25 11:30 36.8 C 16 05/14/25 11:30 36.8 C 87 16 122/70
[2025-05-14] MEDS: LIDOCAINE 2%/EPINEPHRINE 1:200,000 20 ML PF ONE (21:29)
[2025-05-14] MEDS: BUPIVACAINE 0.25% PF 30 ML VIAL ONE (21:29)
[2025-05-14] MEDS: fentANYL 2 MCG/ML BUPIVacaine 0.125%-NSS 100ML BAG ONE (21:29)
[2025-05-14] MEDS ORDERED: OXYTOCIN 30 UNITS/NSS 30 UNITS/500 ML BAG IV PRN (21:42)
[2025-05-14] MEDS: SODIUM CHLORIDE 0.9% PF INJ 10 ML VIAL ONE (21:44)
--- NOTE | 2025-05-14 22:51 | Obstetrical Progress Note ---
Date of Service May 14, 2025 Assessment & Plan Admission and Anticipated Discharge Date Admission Date: May 14, 2025 Subjective Patient is comfortable now, received epidural for pain. Vital signs stable afebrile, heart rate category 1,[place] is registering contractions every 2 to 3 minutes Vaginal exam 4-5 cm dilated, 60% effaced, -2 with bulging bag, patient agreed with AROM, clear fluid was obtained, continue to monitor closely Results & Data Vital Signs (Past 12 Hours) Vital Signs Temp Pulse Resp BP Pulse Ox 05/14/25 22:46 72 95 05/14/25 22:44 70 94 05/14/25 22:41 66 93 05/14/25 22:38 70 114/63 05/14/25 22:37 71 94 05/14/25 22:36 76 93 05/14/25 22:31 82 93 05/14/25 22:26 84 94 05/14/25 22:25 74 94 05/14/25 22:22 73 106/61 05/14/25 22:21 73 93 05/14/25 22:16 72 93 05/14/25 22:13 77 94 05/14/25 22:11 72 92 05/14/25 22:07 70 112/59 L 05/14/25 22:06 68 94 05/14/25 22:01 72 93 05/14/25 21:56 80 93 05/14/25 21:52 75 115/66 05/14/25 21:51 80 94 05/14/25 21:46 81 95 05/14/25 21:45 85 94 05/14/25 21:41 75 96 05/14/25 21:39 79 94 05/14/25 21:36 84 97 05/14/25 21:35 75 114/70 05/14/25 21:32 80 122/79 05/14/25 21:31 70 97 05/14/25 21:29 81 119/79 05/14/25 21:26 99 H 128/91 98 05/14/25 21:21 83 99 05/14/25 21:16 85 99 05/14/25 21:11 92 H 98 05/14/25 18:56 36.7 C 75 18 121/76 05/14/25 15:31 68 135/76 05/14/25 15:30 18 05/14/25 15:30 36.8 C 18 05/14/25 11:30 36.8 C 16 05/14/25 11:30 36.8 C 87 16 122/70
[2025-05-14] MEDS: OXYTOCIN 30 UNITS/NSS 30 UNITS/500 ML BAG IV PRN (23:52)
[2025-05-15] MEDS ORDERED: ACETAMINOPHEN 325 MG TAB PO PRN
[2025-05-15] MEDS ORDERED: HYDROCORTISONE ACETATE 25 MG SUPP PR PRN
[2025-05-15] MEDS ORDERED: OXYTOCIN 30 UNITS/NSS 30 UNITS/500 ML BAG IV PRN
--- NOTE | 2025-05-15 00:09 | Delivery Summary ---
Vaginal Delivery Summary Date of Service May 15, 2025 Vaginal Delivery Summary Patient was found to be fully dilated and desired to push. She pushed with one contraction and delivered the head and then shoulders with minimal traction. Nuchal cordx1, reduced. The baby was handed off to the mother. The cord was clampedx2 and cut at 1 minute. The vagina and perineum were checked and found to be intact, no laceration. Patient desired left sided Bartholin gland cyst drained. It was held between fingers and infiltrated with Lidocaine for LA. Scalpel tip was used to puncture from the thinned point. About 3 ml pussy fluid was drained. Inside of the cyst cavity was checked with tip of hemostat and was empty. It was hemostatic. The placenta was delivered spontaneously as intact and complete. The uterus was explored and found to be empty. QBL was 123 ml ml. The fundus was firm The baby was a viable female , Apgars 8/9, the weight is pending The mother and the baby tolerated the procedure well. No complications happened and I was present during whole procedure.
[2025-05-15] MEDS: MEASLES, MUMPS & RUBELLA VIRUS VACCINE (MMR) 0.5ML VIAL SQ ONE (00:36)
[2025-05-15] MEDS: DIPHTHER/TETAN/PERTUS Vaccine (Tdap, Adol/Adult) 0.5mL IM ONE (00:36)
[2025-05-15] MEDS: IBUPROFEN 600 MG TAB PO PRN (00:41)
[2025-05-15] MEDS: BENZOCAINE 20% SPRY 85 APPLN/85 GM CAN EXT PRN (00:41)
[2025-05-15] MEDS: LIDOCAINE 1% LOCAL 20 ML VIAL INFIL PRN (00:42)
--- NOTE | 2025-05-15 06:34 | Anesthesia Procedure Note ---
Date of Service May 15, 2025 Anesthesia Post Epidural Note Vital Signs Vital Signs: Temp Pulse Resp BP Pulse Ox O2 Del Method 97.9 F 62 18 106/70 99 Room Air 05/15/25 03:00 05/15/25 03:00 05/15/25 03:00 05/15/25 03:00 05/15/25 03:00 05/15/25 03:00 Pain Intensity Lower Abdomen: Pain Intensity: 4 Notes Mental Status: alert / awake / arousable and participated in evaluation Nausea / Vomiting: adequately controlled Pain: adequately controlled Airway Patency, RR, SpO2: stable & adequate BP & HR: stable & adequate Hydration State: stable & adequate Neuraxial Anesthesia: was administered and sensory block is resolving Anesthetic Complications: no major complications apparent and Pt Satisfied with anesthetic care Epidural: Removed without complications and With tip intact
[2025-05-15] MEDS: FERROUS SULFATE 325 MG TAB PO SCH (08:10)
[2025-05-15] MEDS: PRENATAL VITAMIN 1 TAB PO SCH (08:10)
[2025-05-15] MEDS: DOCUSATE SODIUM 100 MG CAP PO SCH (08:10)
--- NOTE | 2025-05-15 08:24 | Obstetrical Progress Note ---
Date of Service May 15, 2025 Subjective Ambulation: ambulating normally Passing Gas:: Yes Diet Tolerance:: regular diet Lochia:: Small Feeding Type:: bottle feeding Current Pain Level(1-10): 0 doing well Physical Exam Constitutional WD/WN, vitals as above Gastrointestinal (Abdomen) Inspection/Auscultation: abdomen normal to inspection abdomen soft and non-tender fundus firm below U Musculoskeletal Extremities: extremities normal to inspection Skin no rashes, warm and dry Neurologic patellar DTR's 2+ bilat, sensation intact Psychiatric A+Ox3, euthymic affect Results & Data Vital Signs (Past 12 Hours) Vital Signs Temp Pulse Pulse Resp BP BP Pulse Ox 05/15/25 03:00 36.6 C 62 18 106/70 99 05/15/25 03:00 05/15/25 02:07 81 110/55 L 05/15/25 01:52 74 109/63 05/15/25 01:37 56 L 107/58 L 05/15/25 01:22 80 114/67 05/15/25 01:07 80 119/69 05/15/25 00:52 76 108/64 05/15/25 00:37 62 111/68 05/15/25 00:22 77 111/66 05/15/25 00:20 75 111/65 05/14/25 23:54 71 113/71 05/14/25 23:46 74 95 05/14/25 23:41 91 H 94 05/14/25 23:36 84 97 05/14/25 23:32 101 H 91 05/14/25 23:31 82 93 05/14/25 23:26 83 97 05/14/25 23:22 65 93/65 L 05/14/25 23:21 68 96 05/14/25 23:16 70 96 05/14/25 23:11 69 96 05/14/25 23:09 65 100/51 L 05/14/25 23:06 71 94 05/14/25 23:01 77 94 05/14/25 23:00 18 05/14/25 23:00 36.7 C 18 05/14/25 22:56 73 94 05/14/25 22:52 67 103/55 L 05/14/25 22:51 74 94 05/14/25 22:50 77 94 05/14/25 22:46 72 95 05/14/25 22:44 70 94 05/14/25 22:41 66 93 05/14/25 22:38 70 114/63 05/14/25 22:37 71 94 05/14/25 22:36 76 93 05/14/25 22:31 82 93 05/14/25 22:26 84 94 05/14/25 22:25 74 94 05/14/25 22:22 73 106/61 05/14/25 22:21 73 93 05/14/25 22:16 72 93 05/14/25 22:13 77 94 05/14/25 22:11 72 92 05/14/25 22:07 70 112/59 L 05/14/25 22:06 68 94 05/14/25 22:01 72 93 05/14/25 21:56 80 93 05/14/25 21:52 75 115/66 05/14/25 21:51 80 94 05/14/25 21:46 81 95 05/14/25 21:45 85 94 05/14/25 21:41 75 96 05/14/25 21:39 79 94 05/14/25 21:36 84 97 05/14/25 21:35 75 114/70 05/14/25 21:32 80 122/79 05/14/25 21:31 70 97 05/14/25 21:29 81 119/79 05/14/25 21:26 99 H 128/91 98 05/14/25 21:21 83 99 05/14/25 21:16 85 99 05/14/25 21:11 92 H 98 O2 Del Method 05/15/25 03:00 Room Air 05/15/25 03:00 Room Air 05/15/25 02:07 05/15/25 01:52 05/15/25 01:37 05/15/25 01:22 05/15/25 01:07 05/15/25 00:52 05/15/25 00:37 05/15/25 00:22 05/15/25 00:20 05/14/25 23:54 05/14/25 23:46 05/14/25 23:41 05/14/25 23:36 05/14/25 23:32 05/14/25 23:31 05/14/25 23:26 05/14/25 23:22 05/14/25 23:21 05/14/25 23:16 05/14/25 23:11 05/14/25 23:09 05/14/25 23:06 05/14/25 23:01 05/14/25 23:00 05/14/25 23:00 05/14/25 22:56 05/14/25 22:52 05/14/25 22:51 05/14/25 22:50 05/14/25 22:46 05/14/25 22:44 05/14/25 22:41 05/14/25 22:38 05/14/25 22:37 05/14/25 22:36 05/14/25 22:31 05/14/25 22:26 05/14/25 22:25 05/14/25 22:22 05/14/25 22:21 05/14/25 22:16 05/14/25 22:13 05/14/25 22:11 05/14/25 22:07 05/14/25 22:06 05/14/25 22:01 05/14/25 21:56 05/14/25 21:52 05/14/25 21:51 05/14/25 21:46 05/14/25 21:45 05/14/25 21:41 05/14/25 21:39 05/14/25 21:36 05/14/25 21:35 05/14/25 21:32 05/14/25 21:31 05/14/25 21:29 05/14/25 21:26 05/14/25 21:21 05/14/25 21:16 05/14/25 21:11 Laboratory Results Laboratory Results - last 72 hr 05/14/25 05/14/25 05/14/25 08:31 11:35 13:58 WBC 6.96 RBC 3.95 L Hgb 12.3 Hct 35.8 L MCV 90.6 MCH 31.1 MCHC 34.4 RDW Std Deviation 54.1 H RDW Coeff of Cee 16.4 H Plt Count 195 MPV 10.5 Sodium 138 Potassium 3.4 L Chloride 107 Carbon Dioxide 23 Anion Gap 8 BUN 9 Creatinine 0.59 L Est Cr Clr Drug Dosing 152.7 eGFR 119.71 BUN/Creatinine Ratio 15.3 Glucose 135 H POC Glucose 86 103 H Calcium 8.4 L Total Bilirubin 0.4 AST 19 ALT 18 Alkaline Phosphatase 161 H Total Protein 5.9 L Albumin 3.1 L Globulin 2.8 Albumin/Globulin Ratio 1.1 Treponema pallidum Ab Negative 05/14/25 05/14/25 19:09 23:14 WBC RBC Hgb Hct MCV MCH MCHC RDW Std Deviation RDW Coeff of Cee Plt Count MPV Sodium Potassium Chloride Carbon Dioxide Anion Gap BUN Creatinine Est Cr Clr Drug Dosing eGFR BUN/Creatinine Ratio Glucose POC Glucose 140 H 88 Calcium Total Bilirubin AST ALT Alkaline Phosphatase Total Protein Albumin Globulin Albumin/Globulin Ratio Treponema pallidum Ab
[2025-05-16 00:07] VITALS: O2SAT 95
[2025-05-16 06:02] LABS: Hematocrit (blood only) 35.8 % (37.0-47.0); Hemoglobin 12.4 g/dl (12.0-16.0); Mean Corpuscular Hemoglobin 32.0 pg (25.0-34.0); Mean Corpuscular Volume 92.5 fL (80.0-100.0); Platelet Count 193 K/uL (130-400); RDW Standard Deviation 55.6 fL (36.4-46.3); Red Blood Count 3.87 M/uL (4.20-5.40); White Blood Count 9.55 K/ul (4.8-10.8)
--- NOTE | 2025-05-16 08:17 | Obstetrical Progress Note ---
Date of Service May 16, 2025 Assessment & Plan Admission and Anticipated Discharge Date Admission Date: May 14, 2025 Subjective Patient is seen and examined. She feels well, no complaints. Ambulating without dizziness Voiding without difficulty Tolerating regular diet with out N&V Bleeding is minimal No fever/ chills/ CP/ SOB/ N&V/ Leg pain Breast and bottle feeding without problems Vital Signs Temp Pulse Resp BP Pulse Ox O2 Del Method 05/15/25 23:45 36.7 C 76 16 113/73 95 Room Air Lab Results 05/14/25 05/14/25 05/14/25 Range/Units 08:31 11:35 13:58 WBC 6.96 (4.8-10.8) K/ul RBC 3.95 L (4.20-5.40) M/uL Hgb 12.3 (12.0-16.0) g/dl Hct 35.8 L (37.0-47.0) % MCV 90.6 (80.0-100.0) fL MCH 31.1 (25.0-34.0) pg MCHC 34.4 (32.0-36.0) g/dL RDW Std Deviation 54.1 H (36.4-46.3) fL RDW Coeff of Cee 16.4 H (11.5-14.5) % Plt Count 195 (130-400) K/uL MPV 10.5 (9.4-12.4) fL Sodium 138 (136-145) mmol/L Potassium 3.4 L (3.5-5.1) mmol/L Chloride 107 (98-107) mmol/L Carbon Dioxide 23 (21-32) mmol/L Anion Gap 8 (3-11) BUN 9 (6-23) mg/dl Creatinine 0.59 L (0.6-1.2) mg/dl Est Cr Clr Drug Dosing 152.7 ml/min eGFR 119.71 BUN/Creatinine Ratio 15.3 (10-20) Glucose 135 H (70-99(Fasting)) mg/dl POC Glucose 86 103 H (70-99) mg/dl Calcium 8.4 L (8.6-10.3) mg/dl Total Bilirubin 0.4 (0.2-1.0) mg/dl AST 19 (13-39) U/L ALT 18 (7-52) U/L Alkaline Phosphatase 161 H (34-104) U/L Total Protein 5.9 L (6.0-8.3) gm/dl Albumin 3.1 L (3.4-5.0) gm/dl Globulin 2.8 (2.5-4.0) gm/dl Albumin/Globulin Ratio 1.1 (0.9-2) Treponema pallidum Ab Negative (Negative) Blood Type Antibody Screen Screen (Negative) 05/14/25 05/14/25 05/15/25 Range/Units 19:09 23:14 05:47 WBC (4.8-10.8) K/ul RBC (4.20-5.40) M/uL Hgb (12.0-16.0) g/dl Hct (37.0-47.0) % MCV (80.0-100.0) fL MCH (25.0-34.0) pg MCHC (32.0-36.0) g/dL RDW Std Deviation (36.4-46.3) fL RDW Coeff of Cee (11.5-14.5) % Plt Count (130-400) K/uL MPV (9.4-12.4) fL Sodium (136-145) mmol/L Potassium (3.5-5.1) mmol/L Chloride (98-107) mmol/L Carbon Dioxide (21-32) mmol/L Anion Gap (3-11) BUN (6-23) mg/dl Creatinine (0.6-1.2) mg/dl Est Cr Clr Drug Dosing ml/min eGFR BUN/Creatinine Ratio (10-20) Glucose (70-99(Fasting)) mg/dl POC Glucose 140 H 88 (70-99) mg/dl Calcium (8.6-10.3) mg/dl Total Bilirubin (0.2-1.0) mg/dl AST (13-39) U/L ALT (7-52) U/L Alkaline Phosphatase (34-104) U/L Total Protein (6.0-8.3) gm/dl Albumin (3.4-5.0) gm/dl Globulin (2.5-4.0) gm/dl Albumin/Globulin Ratio (0.9-2) Treponema pallidum Ab (Negative) Blood Type A Negative Antibody Screen NEGATIVE Screen Negative (Negative) 05/16/25 Range/Units 05:41 WBC 9.55 (4.8-10.8) K/ul RBC 3.87 L (4.20-5.40) M/uL Hgb 12.4 (12.0-16.0) g/dl Hct 35.8 L (37.0-47.0) % MCV 92.5 (80.0-100.0) fL MCH 32.0 (25.0-34.0) pg MCHC 34.6 (32.0-36.0) g/dL RDW Std Deviation 55.6 H (36.4-46.3) fL RDW Coeff of Cee 16.4 H (11.5-14.5) % Plt Count 193 (130-400) K/uL MPV 10.7 (9.4-12.4) fL Sodium (136-145) mmol/L Potassium (3.5-5.1) mmol/L Chloride (98-107) mmol/L Carbon Dioxide (21-32) mmol/L Anion Gap (3-11) BUN (6-23) mg/dl Creatinine (0.6-1.2) mg/dl Est Cr Clr Drug Dosing ml/min eGFR BUN/Creatinine Ratio (10-20) Glucose (70-99(Fasting)) mg/dl POC Glucose (70-99) mg/dl Calcium (8.6-10.3) mg/dl Total Bilirubin (0.2-1.0) mg/dl AST (13-39) U/L ALT (7-52) U/L Alkaline Phosphatase (34-104) U/L Total Protein (6.0-8.3) gm/dl Albumin (3.4-5.0) gm/dl Globulin (2.5-4.0) gm/dl Albumin/Globulin Ratio (0.9-2) Treponema pallidum Ab (Negative) Blood Type Antibody Screen Screen (Negative) PE: General: Alert, orientedx3, NAD Abd: soft, NT, fundus firm, below Umbilicus Perineum intact, Lochia rubra minimal Ext; NT, no edema AP: 34 yo s/p , ppd# 2 VSS Afebrile doing well Continue routine care All questions were answered D/C home , f/u in office Results & Data Vital Signs (Past 12 Hours) Vital Signs Temp Pulse Resp BP Pulse Ox O2 Del Method 05/15/25 23:45 36.7 C 76 16 113/73 95 Room Air
[2025-05-16 10:29] VITALS: BP 130/87; RESP 18; TEMP 97.9
[2025-05-16 10:43] VITALS: PULSE 62
== END 2025-05-16 13:00 | disposition home or self-care (01) | DRG 807 ==
LOC: 4S1 05-14 07:56 → 4E2 05-15 02:30